=== PATIENT | male | born 1950 | race Caucasian/White ===

== ENCOUNTER 2017-04-22 13:05 | Outpatient (CLI) | payer BC, MEDICARE ==
--- NOTE | 2017-04-22 14:53 | RAD ---
TWO VIEW CHEST: HISTORY: COPD. COMPARISON: July 2011. FINDINGS: Lungs are clear. Heart and mediastinum appear normal. Mild aortic calcification is seen. The osseo us structures are unremarkable. IMPRESSION: Unremarkable chest. POS: [facility]
== END 2017-04-22 13:06 | disposition home or self-care (01) ==
LOC: RAD-FRANK 13:05
PROVIDERS: ATTEND Nurse Practitioner Family
DX: J18.9 Pneumonia, unspecified organism (principal); J44.1 Chronic obstructive pulmonary disease with (acute) exacerbation; M94.0 Chondrocostal junction syndrome [Tietze]; Z87.01 Personal history of pneumonia (recurrent)
CPT/HCPCS: 71046

== ENCOUNTER 2017-10-07 13:33 | Outpatient (CLI) | payer BC, MEDICARE ==
[~2017-10-07 13:33] MED LIST: ISOVUE-370 76%-LOCM 1 ML ONE
== END 2017-10-07 13:34 | disposition home or self-care (01) ==
LOC: BICCT 13:33
PROVIDERS: ATTEND Urology
DX: R31.29 Other microscopic hematuria (principal); R93.421 Abnormal radiologic findings on diagnostic imaging of right kidney; R93.422 Abnormal radiologic findings on diagnostic imaging of left kidney; R16.1 Splenomegaly, not elsewhere classified; K74.60 Unspecified cirrhosis of liver; I85.00 Esophageal varices without bleeding
CPT/HCPCS: 36415; 74178; 80048; 81001; 87086; 88112; G0103

== ENCOUNTER 2018-05-25 15:59 | Inpatient (IN) | payer BC, MEDICARE ==
[2018-05-25 16:29] LABS: #Lymphocytes 0.8 thou/uL (1.20-3.40); #Monocytes 1.3 thou/uL (0.11-0.59); #Neutrophils 8.2 thou/uL (1.40-6.50); %Basophils 0.3 % (0.0-1.0); %Eosinophils 0.2 % (0.0-10.0); %Lymphocytes 7.7 % (21.0-51.0); %Monocytes 12.3 % (0.0-10.0); %Neutrophils 79.4 % (42.0-75.0); Mean Corpuscular HGB CONC 32.9 g/dL (32.0-36.0); Mean Corpuscular Hemoglobin 31.9 pg (27.0-31.0); Mean Platelet Volume 9.4 fL (7.4-10.4); Platelet Count 87 thou/uL (130-400); RBC Distribution Width 13.4 % (11.5-14.5); Red Blood Cell (RBC) Count 4.06 mill/uL (4.70-6.10); White Blood Cell (WBC) Count 10.3 thou/uL (4.8-10.8)
[2018-05-25 16:44] LABS: ALT (SGPT) 15 U/L (8-55); AST (SGOT) 24 U/L (5-34); Albumin 3.6 g/dL (3.4-4.8); Alkaline Phosphatase 116 U/L (40-150); Anion Gap 14 mmol/L (10-20); BUN (Urea Nitrogen) 17 mg/dL (8.4-25.7); Bilirubin, Total 1.9 mg/dL (0.2-1.2); Calc. Creatinine Clearance 0 mL/min (70-130); Calcium 9.4 mg/dL (7.8-10.44); Carbon Dioxide 22 mmol/L (23-31); Chloride 105 mmol/L (98-107); Estimated GFR-MDRD Greater than 90; Globulin 3.1 g/dL (2.4-3.5); Glucose 116 mg/dL (80-115); Lipase 22 U/L (8-78); Potassium 3.6 mmol/L (3.5-5.1); Protein, Total 6.7 g/dL (5.8-8.1); Sodium 137 mmol/L (136-145)
[2018-05-25] MEDS ORDERED: Ondansetron PF 4 MG/2 ML Vial ONE (16:47)
[2018-05-25] MEDS ORDERED: Morphine 4 MG/ML VIAL ONE (16:47)
[2018-05-25] MEDS ORDERED: ISOVUE-370 76%-LOCM 1 ML ONE (16:57)
[2018-05-25] MEDS ORDERED: Gadobenate Dimeglumine 529 MG/1 ML (20ML VIAL) ONE (16:58)
[2018-05-25 17:33] LABS: Bilirubin Moderate (Negative); Blood, Urine Negative (Negative); Clarity CLEAR (Clear); Glucose, Urine (Dipstick) Negative (Negative); Leukocyte Small (Negative); Protein, Urine (Dipstick) 30 mg/dL (Neg-Trace); Specific Gravity, Urine 1.033 (1.002-1.036); pH, Urine 6.5 (5.0-9.0)
[2018-05-25 17:35] LABS: Bacteria/HPF None Seen HPF (None Seen); Pathc Cast-AUWi Flag 0.87 (0-2.49); Squamous Epithelial 0-3 HPF (0-3); WBC/HPF 0-3 HPF (0-3)
[2018-05-25 17:37] LABS: Nitrite Negative (Negative); Urobilinogen > or = 8.0 mg/dL (0.2-1.0)
[2018-05-25] MEDS ORDERED: Piperacillin/Tazobactam 3.375 GM VIAL ONE (17:38)
[2018-05-25] MEDS ORDERED: Sodium Chloride 0.9% 0 ML ONE (17:38)
[2018-05-25] MEDS ORDERED: Sodium Chloride 0.9% 100 ML ONE (17:39)
[2018-05-25 17:45] LABS: Hyaline Casts/LPF 0-3 HYALINE CAST LPF (0-3 Hyaline)
--- NOTE | 2018-05-25 18:26 | CT ---
CT ABDOMEN AND PELVIS WITH CONTRAST: History: Diffuse abdominal pain, worsening right upper quadrant. Comparison: None. FINDINGS: No pericardial effusion. Diffuse hepatic nodularity suggesting cirrhosis. The gallbladder is distende d with pericholecystic inflammation suggesting acute cholecystitis. The common bile duct measures up to 9 mm. Evaluation for hepatic mass is limited due to the phase of contrast. There is mild perihepat ic fluid. There is narrowing of the second portion of the duodenum due to the gallbladder distention. Mild girish splenic fluid. There is gastric varices as well as splenic varices. Aortic contour is nonaneurysmal. There is small volume fluid within the pelvis. Reactive inflammation of the hepatic flexure of the colon due to infl ammation from the gallbladder. Multiple left and right renal hypodensities suggest cysts. Punctate 2 mm calculus interpolar right ki dney, nonobstructed. Dense calcifications in the origin of the celiac trunk and SMA with adequate peripheral flow. No retr operitoneal adenopathy. There is an old compression fracture at L1 approximately 30% anterior height loss. Advanced degenerat jose disease L5-S1. IMPRESSION: 1. Distended gallbladder with pericholecystic fluid suggestive of acute cholecystitis. There is peris plenic and perihepatic fluid as well as increased fluid in the pelvis likely from the acute cholecyst itis. 2. Reactive thickening of the hepatic flexure of the colon as well as narrowing, extrinsic, second po rtion duodenum due to the distended gallbladder. 3. Mildly dilated common bile duct measuring up to 9 mm. 4. Hepatic cirrhosis with hypertension. Given the severe cirrhosis, patient should be placed in an HC C screening ultrasound program. Evaluation for underlying mass is limited due to the phase of contras t. 5. 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 POS: [facility]
[2018-05-25] MEDS ORDERED: Ondansetron PF 4 MG/2 ML Vial IVP PRN (19:05)
[2018-05-25] MEDS ORDERED: Ondansetron ODT 4 MG TAB SL PRN (19:05)
[2018-05-25] MEDS ORDERED: Sodium Chloride 0.9% 1,000 ML IV SCH (19:05)
[2018-05-25] MEDS ORDERED: Morphine 4 MG/ML VIAL SLOW IVP PRN (19:07)
[2018-05-25] MEDS ORDERED: Ketorolac Tromethamine 30 MG/ML VIAL IVP PRN (19:17)
[2018-05-25] MEDS ORDERED: Acetaminophen 1,000 MG in Premix Bag 1 BAG IVPB PRN (19:17)
[2018-05-25] MEDS ORDERED: Sodium Chloride 0.9% (PF) 10 ML VIAL FS PRN (19:18)
[2018-05-25] MEDS ORDERED: Enoxaparin Sodium 40 MG/0.4 ML SYRINGE SC SCH (19:30)
--- NOTE | 2018-05-25 20:49 | MRI ---
MRI ABDOMEN WITH AND WITHOUT CONTRAST MRCP: History: Abdominal pain. Comparison: CT same day. FINDINGS: There is extensive periesophageal, perigastric varices. The gallbladder is dilated. There is a 3 mm c alculus within the gallbladder body. No definite calculus is appreciated within the cystic duct. Ther e is a 4 mm and 3 mm calculus in the distal common bile duct proximal to the ampulla and proximal to the confluent with the pancreatic duct. Pancreatic duct not significantly dilated. Extensive pericholecystic inflammation. There is pericholecystic of stranding. There is perihepatic a nd perisplenic fluid. Multiple bilateral renal cysts. No abnormal hepatic enhancing mass is appreciated. Common bile duct is dilated measuring up to 1 cm in size. Portal vein is patent. Spleen is mildly enlarged. Left sided IVC. IMPRESSION: 1. Two stones in the distal common bile duct proximal to the ampulla and confluence with the pancreat ic duct measuring 4 and 3 mm. CBD measures up to 1 cm. 2. Markedly dilated gallbladder with pericholecystic inflammation concerning for superimposed cholecy stitis due to reservoir affect from distal common bile duct obstruction. 3. Concern for 1.2 cm hepatic segment Eli mass (se 16 im 23). AFP correlation recommended. At a minim um a follow up MRI liver protocol in 1-2 months recommended. 3. Likely an inflamed pericaval lymph node. 4. Severe hepatic cirrhosis with gastric and splenic varices. Portal vein is patent. CODE: T POS: [facility]
[2018-05-25] MEDS: Lactated Ringer's 1,000 ML IV SCH (20:51)
[2018-05-25 21:45] LABS: Lactic Acid 1.5 mmol/L (0.5-2.2)
[2018-05-26 00:01] VITALS: BMI 28.0
--- NOTE | 2018-05-26 00:31 | CON ---
DATE OF CONSULTATION: 05/25/2018 REASON FOR CONSULTATION: Possible choledocholithiasis. CONSULTING PHYSICIAN: Johnathon Hinton MD HISTORY OF PRESENT ILLNESS: The patient is a 67-year-old male with past medical history of tongue cancer, status post chemotherapy and radiation treatment, benign prostatic hyperplasia, asthma, COPD, and hypertension presenting with complaints of right upper quadrant abdominal pain. He states that he was in the usual state of health until approximately 4 to 5 days ago when he began to have increased right upper quadrant/periumbilical abdominal pain characterized as a stabbing/cramping type sensation, was constant and would reach a severity of 8/10. The pain was worse with increased physical activity and pressure to the region. However, there were no clear alleviating factors. The pain was associated with subjective fever and chills, but he denies any nausea, vomiting, dysphagia, odynophagia, GI bleeding, diarrhea, or constipation. He notes that his bowel movements do not have any effect on his abdominal pain at all. With the worsening of his abdominal pain, it prompted him to seek healthcare assistance at the [facility]. While in the ER, he was noted to have cirrhotic morphology on imaging as well as findings consistent with acute cholecystitis and elevated bilirubin and now an MRI with findings consistent with two stones within the common bile duct consistent with choledocholithiasis. REVIEW OF SYSTEMS: A 10-category review of systems was obtained with all responses negative except for the pertinent positives as listed in HPI. PAST MEDICAL HISTORY: As per HPI. PAST SURGICAL HISTORY: Bilateral hip replacement, bilateral knee replacement, appendectomy, shoulder surgery, tonsillectomy. FAMILY HISTORY: Denies any GI malignancies. SOCIAL HISTORY: Denies any tobacco, alcohol, or illicit drug use. OUTPATIENT MEDICATIONS: Reviewed. ALLERGIES: NO KNOWN DRUG ALLERGIES. PHYSICAL EXAMINATION: VITAL SIGNS: Temperature 98.6, pulse 87, blood pressure 162/81, respiratory rate 18, saturating 97% on room air. GENERAL: The patient is lying in bed, in no acute distress. Alert and oriented x4. HEENT: Normocephalic, atraumatic. Neck is supple. No JVD or scleral icterus noted. CARDIOVASCULAR: Regular rate and rhythm with no discernible murmurs, gallops, or rubs. RESPIRATORY: Clear to auscultation bilaterally with no discernible wheezes or rales. ABDOMEN: Normoactive bowel sounds. Soft. Mild abdominal distention. Tenderness to palpation in the right upper quadrant, right mid abdomen, and periumbilical regions. EXTREMITIES: No cyanosis, clubbing, or edema. LABORATORY DATA: CBC with a white blood cell count of 10.3, hemoglobin 13, hematocrit 39.4, platelets 87. Chemistry with a sodium of 137, potassium 3.6, chloride 105, CO2 of 22, BUN 17, creatinine 0.8, glucose 116, AST 24, ALT 15, albumin 36, alkaline phosphatase 116, total bilirubin 1.9. FIB-4 calculation which showed significant fibrosis with 4.77, APRI score indeterminate at 0.7. IMAGING DATA: A CT of the abdomen and pelvis was obtained on May 25, 2018, which showed diffuse hepatic nodularity suggesting cirrhosis. The gallbladder also was distended with pericholecystic inflammation suggesting acute cholecystitis. However, the common bile duct measured approximately 9 mm in size without any evidence of choledocholithiasis. There were gastric varices as well as splenic varices seen on CT as well as multiple left and right renal hypodensities suggesting cysts. An MRCP was also obtained on May 25, 2018, which showed extensive periesophageal and perigastric varices. The gallbladder was again seen dilated with a 3-mm calculus within the gallbladder body. However, there were 4 mm and 3 mm calculi within the distal common bile duct consistent with choledocholithiasis. There was also extensive pericholecystic inflammation suggesting acute cholecystitis. The common bile duct measured approximately 1 cm in size on the MRCP. However, there was concern for a 1.2-cm hepatic segment 4A mass concerning for possible malignancy, but unable to determine given the non-multiphasic nature of the study. ASSESSMENT AND PLAN: The patient is a 67-year-old male with past medical history of tongue cancer, status post chemotherapy and radiation, benign prostatic hypertrophy, asthma, chronic obstructive pulmonary disease, and hypertension presenting with choledocholithiasis and cirrhosis. Choledocholithiasis. The patient is presenting with acute onset of right upper quadrant abdominal pain that has been present for the last 4 to 5 days, characterized as a stabbing/cramping type sensation that has been constant and would reach a severity of 8/10. On admission, his LFTs are fairly unremarkable except for a mildly elevated total bilirubin 1.9. However, imaging on the CT scan is showing dilation of the distal common bile duct at 9 mm, where as the MRCP is showing choledocholithiasis with two stones within the distal common bile duct. Recommendations: 1. Agree with placement of patient on broad-spectrum antibiotic to include gram-negative coverage given the finding of choledocholithiasis. 2. IV fluids per primary team. 3. We would make the patient n.p.o. at this time in preparation for ERCP later on this morning. 4. We will plan for ERCP given the presence of common bile duct stones later on today. Cirrhosis. The patient is presenting with a new diagnosis of cirrhosis based primarily on imaging consistent with cirrhotic morphology as well as perigastric and periesophageal varices. He does have significant thrombocytopenia as well as FIB elevated noninvasive marker of fibrosis (FIB-4) consistent with fibrosis. At this point, the patient does appear to have cirrhosis of the liver, but the etiology is unknown at this time. He also appears to have a 1.2-cm lesion with a hepatic segment 4 concerning for the presence of possible hepatocellular carcinoma. Recommendations: 1. The patient will need a multiphasic study within the next 1-2 months for further evaluation of this hepatic mass/lesion. 2. We would obtain a full liver workup regarding the possible etiology of cirrhosis. 3. The patient will need a screening EGD here in the near future for evaluation of esophageal varices. He will also need a screening colonoscopy given his age of 67 (age-appropriate screening colonoscopy). We will continue to follow. Please call with any questions. Job ID: [id number]
[2018-05-26] MEDS ORDERED: Piperacillin/Tazobactam 3.375 GM in Sodium Chloride 0.9% 100 ML IVPB SCH (02:00)
[2018-05-26] MEDS: Lactated Ringer's 1,000 ML IV SCH ×2 (03:09→12:02)
[2018-05-26 07:57] LABS: #Lymphocytes 0.5 thou/uL (1.20-3.40); #Monocytes 0.7 thou/uL (0.11-0.59); #Neutrophils 3.5 thou/uL (1.40-6.50); %Basophils 0.4 % (0.0-1.0); %Eosinophils 0.9 % (0.0-10.0); %Lymphocytes 9.9 % (21.0-51.0); %Monocytes 14.3 % (0.0-10.0); %Neutrophils 74.4 % (42.0-75.0); Hemoglobin 11.2 g/dL (14.0-18.0); Mean Corpuscular HGB CONC 33.2 g/dL (32.0-36.0); Mean Corpuscular Hemoglobin 32.5 pg (27.0-31.0); Mean Corpuscular Volume 98.1 fL (78.0-98.0); Mean Platelet Volume 8.7 fL (7.4-10.4); Platelet Count 58 thou/uL (130-400); RBC Distribution Width 13.3 % (11.5-14.5); Red Blood Cell (RBC) Count 3.44 mill/uL (4.70-6.10); White Blood Cell (WBC) Count 4.8 thou/uL (4.8-10.8)
[2018-05-26] MEDS ORDERED: Indomethacin 50 MG SUPP PR ONE (08:00)
[2018-05-26 08:09] LABS: INR-International Normal Ratio 1.5; Prothrombin Time 18.4 SEC (12.0-14.7)
[2018-05-26 08:16] LABS: ALT (SGPT) 16 U/L (8-55); AST (SGOT) 22 U/L (5-34); Albumin 3.1 g/dL (3.4-4.8); Alkaline Phosphatase 104 U/L (40-150); Anion Gap 11 mmol/L (10-20); BUN (Urea Nitrogen) 17 mg/dL (8.4-25.7); Calc. Creatinine Clearance 98 mL/min (70-130); Carbon Dioxide 24 mmol/L (23-31); Chloride 108 mmol/L (98-107); Estimated GFR-MDRD 85; Globulin 2.5 g/dL (2.4-3.5); Glucose 94 mg/dL (80-115); Iron 32 ug/dL (65-175); Iron Binding Capacity, Total 205 mcg/dL (261-462); Potassium 3.5 mmol/L (3.5-5.1); Protein, Total 5.6 g/dL (5.8-8.1); Sodium 139 mmol/L (136-145)
[2018-05-26 08:35] LABS: Ferritin 259.26 ng/mL (22-322)
[2018-05-26 08:47] LABS: HBSAB Concentration 0.99 mIU/mL; HBSAg Index 0.18 S/CO (0-0.99); Hep B Core Total Ab Non-Reactive (NonReactive); Hep B Core Total Index 0.08 S/CO (0-0.79); Hep B Surf AB Non-Reactive (NonReactive); Hep B Surf Ag Non-Reactive S/CO (NonReactive); Hep C IgG Ab Non-Reactive (NonReactive); Hep C Index 0.09 S/CO (0-0.79)
[2018-05-26] MEDS: Pantoprazole 40 MG VIAL IVP SCH (10:03)
[2018-05-26] MEDS ORDERED: Glycopyrrolate 0.2 MG/ML 5 ML SYRINGE ONE (11:35)
[2018-05-26] MEDS ORDERED: PROPOFOL 200 MG/20 ML VIAL ONE (11:35)
[2018-05-26] MEDS ORDERED: Rocuronium Bromide 10 MG/ML (10ML VIAL) ONE (11:35)
[2018-05-26] MEDS ORDERED: Ondansetron PF 4 MG/2 ML Vial ONE (11:35)
[2018-05-26] MEDS ORDERED: Lidocaine 1% PF 5 ML VIAL ONE (11:35)
[2018-05-26] MEDS ORDERED: Dexamethasone 20 MG/5 ML VIAL ONE (11:35)
[2018-05-26] MEDS ORDERED: Iothalamate Meglumine 60% 50 ML VIAL FS ONE (13:31)
[2018-05-26] MEDS ORDERED: Indomethacin 50 MG SUPP ONE (13:31)
[2018-05-26] MEDS ORDERED: Fentanyl 100 MCG/2 ML VIAL ONE (13:47)
[2018-05-26] MEDS ORDERED: Ondansetron HCl/PF 4 MG/2 ML Vial IVP PRN (14:19)
[2018-05-26] MEDS ORDERED: Promethazine HCl 25 MG/ML VIAL SLOW IVP PRN (14:19)
[2018-05-26] MEDS ORDERED: Promethazine HCl 25 MG/ML VIAL IM PRN (14:19)
[2018-05-26] MEDS ORDERED: Promethazine HCl 25 MG/ML VIAL ONE (14:50)
--- NOTE | 2018-05-26 16:08 | OP ---
DATE OF PROCEDURE: 05/26/2018 PREPROCEDURE DIAGNOSES: 1. Cirrhosis. 2. Right upper quadrant pain with imaging findings suggest a possible cholecystitis or portal hypertension is possible as well. 3. Gallstones. 4. Magnetic resonance cholangiopancreatography showed possible filling defects in the common bile duct, which is 12 to 13 mm in size. POSTPROCEDURE DIAGNOSES: 1. A 12 mm common bile duct with no filling defects. 2. Small sphincterotomy was performed in light of the magnetic resonance cholangiopancreatography findings, duct was swept 3 times with 12 mm balloon with no effect. 3. Positive intrahepatic ducts consistent with cirrhosis. 4. 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 RECOMMENDATIONS: 1. If there is ongoing concern for cholecystitis, he get a HIDA scan and see if the gallbladder fills or not. Otherwise, he is being treated medically. After acute cholecystitis issues resolved, would consider starting him on a beta nacho, if he is not already on 1 for the varices. 2. I stopped Toradol, this is contraindicated in this 67-year-old man with cirrhosis that is going to cause renal problems. PROCEDURE IN DETAIL: The patient was informed of the risks, benefits, and possible complications of endoscopy including perforation, reaction to medication, and aspiration, informed consent was obtained. The patient was brought to the endoscopy suite, where he was sedated in gradual fashion. Once he was comfortable, he was intubated and placed in prone position on fluoroscopy table. Side-viewing duodenoscope was advanced through the esophagus, stomach, and the second portion of the duodenum and the ampulla was brought into view, which was draining clear yellow bile. Free cannulation was obtained. The cholangiogram revealed no filling defects, but 12 to 13 mm common bile duct. With the findings of the MRCP, the sphincterotomy was performed and swept with 12 mm balloon 3 times with no stones coming through and spontaneous drainage of contrast endoscopically and good drainage was documented radiographically as well. The scope was then retroflexed. No proximal gastric varices. However, the esophageal varices were noted in the distal esophagus. The scope was removed. The patient tolerated the procedure well. No complications. Job ID: [id number]
--- NOTE | 2018-05-26 16:46 | RAD ---
ERCP 3 VIEWS: Date: 05/26/18 HISTORY: Cholecystitis. FINDINGS: Three views show filling of the common bile duct, which does not appear significantly dilated. The di stal ampullary region is never well visualized. No definite filling defects are seen. IMPRESSION: Limited but unremarkable ERCP examination. POS: [facility]
[2018-05-26] MEDS ORDERED: [UNRECOGNIZED DRUG - OTHER] PO PRN (22:32)
[2018-05-26] MEDS ORDERED: fentaNYL 100 mcg/hour Patch TD SCH (22:45)
[2018-05-26] MEDS ORDERED: Docusate Sodium 100 MG/10 ML UDCUP PO PRN (23:02)
[2018-05-27] MEDS: Lactated Ringer's 1,000 ML IV SCH ×3 (00:20→13:02)
--- NOTE | 2018-05-27 00:50 | HP ---
CHIEF COMPLAINT: Abdominal pain. HISTORY OF PRESENT ILLNESS: Mr. Ervin is a 67-year-old man, who has had severe mid abdominal pain since Saturday night. He was admitted on Saturday night through the emergency room with a presumed diagnosis of cholecystitis and cholelithiasis. However, on further examination of his medical history and imaging, he was noted to have evidence of cirrhosis as well as choledocholithiasis. GI was consulted and he underwent an ERCP this morning. No stones were seen in the duct on ERCP despite evidence of stones in the duct on MRCP. The patient states that since being admitted to the hospital, his abdominal pain has basically resolved. He states that when the pain came on, he initially tried to just tough it out at home but it was not getting any better, and was in fact getting worse. He describes the pain as constant and unaffected by anything that he did including activity and eating. He had nausea and subjective fevers and chills, but did not throw up. He did not have any changes in his bowel habits. He states that he was diagnosed with early cirrhosis, 11 or 12 years ago. This was about the same time as he was diagnosed with cancer of the base of his tongue and underwent treatment for that. He was a heavy drinker up until that time, but gave up drinking completely when he was diagnosed with his cancer. He underwent a radical resection of his cancer including part of his jaw and a neck dissection, and then had postoperative radiation therapy. There has been no evidence of recurrence of his cancer since that time. PAST MEDICAL HISTORY: COPD, asthma, hypertension, BPH, history of base of tongue cancer, and cirrhosis. PAST SURGICAL HISTORY: Includes hip and knee replacement bilaterally, appendectomy, shoulder surgery, tonsillectomy, and radical surgery for his base of tongue cancer. FAMILY HISTORY: He does not have any family history of GI malignancies or cirrhosis. SOCIAL HISTORY: Heavy alcohol use in the past, but none in the 11 to 12 years. No tobacco or drug use. ALLERGIES: HE HAS NO KNOWN DRUG ALLERGIES. OUTPATIENT MEDICATIONS: Include: 1. Amlodipine. 2. Vitamin D. 3. Docusate. 4. Fentanyl patch. 5. Iron. 6. Ibuprofen. 7. Afrin nasal spray. 8. Lyrica. 9. Sudafed. 10. Flomax. 11. Anoro Ellipta inhaler. 12. Ventolin inhaler. INPATIENT MEDICATIONS: Include: 1. Levofloxacin. 2. Protonix. REVIEW OF SYSTEMS: Ten-system review of systems is negative except per HPI. LABORATORY DATA: White count this morning was 4.8, hematocrit of 33, and platelet count of 58. INR was elevated at 1.5. TIBC was low at 205. Bilirubin mildly elevated at 2. Other transaminases and lipase normal. IMAGING DATA: CT of the abdomen and pelvis shows hepatic morphology consistent with cirrhosis, distended gallbladder with some pericholecystic inflammation and a dilated common bile duct, gastric and splenic varices, full calcifications at the origin of the celiac and SMA. MRCP showed two stones in the distal common bile duct and a 1.2 cm hepatic mass. PHYSICAL EXAMINATION: GENERAL: Reveals a pleasant gentleman, in no acute distress. He is not visibly jaundiced or icteric. He is not flushed or toxic in appearance. HEENT: Remarkable for postoperative and radiation changes to the right neck. No palpable masses or lymphadenopathy. HEART: Regular. LUNGS: Clear. ABDOMEN: Soft and nondistended. He is very mildly tender to palpation in the right upper quadrant and epigastrium does not exhibit any rigidity, rebound or guarding. No fluid wave on examination and no caput. EXTREMITIES: Warm and well perfused with no significant edema. NEUROLOGIC: No focal deficits. PSYCHIATRIC: Alert, oriented, and appropriate. Unable to give a good history. ASSESSMENT: Cirrhotic patient with gallstones and some wall thickening and edema of the gallbladder. He did have evidence of choledocholithiasis on MRCP, but no stones were seen on the ERCP. It is possible these passed since the patient's abdominal pain has basically resolved when I saw him this morning. In any case, he has now had a sphincterotomy and should be protected from choledocholithiasis for a period of time. He is undergoing workup for the etiology of his cirrhosis but given his history of heavy drinking in the past, this may well be a consequence of his past heavy alcohol use. We will continue with medical management for presumed cholecystitis and if his symptoms continue to resolve, then I would not pursue cholecystectomy. He needs to be referred to a transplant center for evaluation given his worsened cirrhosis and evidence of a hepatic mass suspicious for hepatocellular carcinoma. His platelet count is quite low and surgery would carry risk of bleeding and decompensation of his cirrhosis. Job ID: [id number]
[2018-05-27] MEDS: Ipratropium Bromide 2.5 ml Neb NEB SCH ×3 (01:11→13:01)
[2018-05-27] MEDS: PROVENTIL INHALER 6.7 G (200 INHALATIONS) INH SCH ×3 (01:11→13:01)
[2018-05-27 07:09] LABS: ALT (SGPT) 16 U/L (8-55); AST (SGOT) 25 U/L (5-34); Albumin 3.1 g/dL (3.4-4.8); Alkaline Phosphatase 122 U/L (40-150); Anion Gap 11 mmol/L (10-20); BUN (Urea Nitrogen) 17 mg/dL (8.4-25.7); Bilirubin, Direct 0.6 mg/dL (0.1-0.3); Calc. Creatinine Clearance 111 mL/min (70-130); Carbon Dioxide 24 mmol/L (23-31); Chloride 108 mmol/L (98-107); Estimated GFR-MDRD Greater than 90; Glucose 112 mg/dL (80-115); Protein, Total 5.6 g/dL (5.8-8.1); Sodium 139 mmol/L (136-145)
[2018-05-27 07:33] LABS: Hemoglobin 10.5 g/dL (14.0-18.0); Mean Corpuscular HGB CONC 32.4 g/dL (32.0-36.0); Mean Corpuscular Hemoglobin 31.5 pg (27.0-31.0); Mean Corpuscular Volume 97.2 fL (78.0-98.0); Mean Platelet Volume 9.4 fL (7.4-10.4); Platelet Count 67 thou/uL (130-400); RBC Distribution Width 13.2 % (11.5-14.5); Red Blood Cell (RBC) Count 3.34 mill/uL (4.70-6.10)
[2018-05-27] MEDS ORDERED: Ferrous Sulfate 325 MG TAB PO SCH (08:00)
[2018-05-27] MEDS: Pregabalin 50 MG CAP PO SCH ×2 (08:45→14:12)
[2018-05-27] MEDS: Pantoprazole 40 MG VIAL IVP SCH (08:47)
[2018-05-27 08:59] LABS: Band 16 % (5-11); Lymphocytes 13 % (21-51); MDiff Complete? YES; Monocytes 3 % (0-10); Neutrophil 68 % (42-75); Platelet Morphology Comment Appears Decreased; Polychromasia SLIGHT = 2-3 cells (100X) (0-2/hpf)
[2018-05-27] MEDS ORDERED: Tamsulosin HCl 0.4 MG CAP PO SCH (09:00)
[2018-05-27] MEDS ORDERED: Amlodipine 5 MG TAB PO SCH (09:00)
[2018-05-27 12:55] LABS: ANA Symphony (Qualitative) Negative (Negative); ANA Symphony (Quantitative) 0.1 Ratio (< 0.7 Negative); dsDNA IgG Antibody 2.2 IU/mL (<10 Negative)
[2018-05-27 13:12] LABS: EliA Vaculitis New Method **** NEW METHOD ****; Mitochondrial Ab 0.8 U/mL (<4 Negative)
[2018-05-27 15:51] VITALS: BP 130/75; TEMP 97.7
[2018-05-27] MEDS ORDERED: fentaNYL 100 mcg/hour Patch TD SCH (21:00)
== END 2018-05-27 16:43 | disposition home or self-care (01) | DRG 445 ==
LOC: ERS 15:59 → SURG A 18:39
PROVIDERS: ADMIT Specialist; ATTEND Specialist
PROC: 0F798ZZ Dilation of Common Bile Duct, Via Natural or Artificial Opening Endoscopic (ICD-10-PCS; principal; 2018-05-26)
DX: K80.62 Calculus of gallbladder and bile duct with acute cholecystitis without obstruction (principal); I85.10 Secondary esophageal varices without bleeding; K74.60 Unspecified cirrhosis of liver; J44.9 Chronic obstructive pulmonary disease, unspecified; N40.0 Benign prostatic hyperplasia without lower urinary tract symptoms; I10 Essential (primary) hypertension; Z85.810 Personal history of malignant neoplasm of tongue; Z92.3 Personal history of irradiation; Z87.891 Personal history of nicotine dependence
CPT/HCPCS: 36415; 74177; 74183; 74330; 80048; 80053; 80076; 81003; 81015; 82103; 82105; 82140; 82390; 82550; 82728; 83516; 83540; 83550; 83605; 83690; 84484; 85007; 85025; 85027; 85610; 86038; 86225; 86704; 86706; 86803; 87340; 93005; 96361; 96365; 96375; A9577; C9113; J0131; J1100; J1650; J1885; J1956; J2001; J2270; J2405; J2543; J2550; J2704; J3010; J7050; Q9961; Q9966

== ENCOUNTER 2018-06-04 16:30 | Outpatient (CLI) | payer BC, MEDICARE ==
--- NOTE | 2018-06-04 17:24 | RAD ---
PA AND LATERAL CHEST: HISTORY: Cough and wheezing. COMPARISON: 05/22/2017 FINDINGS: The heart size is normal. The aorta is tortuous. The lungs are well expanded without focal areas of consolidation, pneumothoraces, or pleural effusions. No acute osseous abnormalities are seen. Post op changes in the left shoulder are redemonstrated. IMPRESSION: No radiographic evidence of acute cardiopulmonary process. POS: [facility]
== END 2018-06-04 16:31 | disposition home or self-care (01) ==
LOC: BICRAD 16:30
PROVIDERS: ATTEND Surgery
DX: R05 Cough (principal); R06.2 Wheezing
CPT/HCPCS: 71046

== ENCOUNTER 2018-07-30 13:34 | Outpatient (CLI) | payer BC, MEDICARE ==
[2018-07-30] MEDS ORDERED: Gadobenate Dimeglumine 529 MG/1 ML (20ML VIAL) ONE (14:43)
--- NOTE | 2018-07-30 17:03 | MRI ---
MR OF THE ABDOMEN WITH AND WITHOUT IV CONTRAST 07/30/18 INDICATION: History of alcoholic cirrhosis. CONTRAST: 18 mL of Multihance. COMPARISON: MR of the abdomen with and without contrast dated 05/25/18. FINDINGS: The cirrhotic morphology of the liver with findings of portal hypertension including splenomegaly, sp lenic and paraesophageal gastric varicosities is similar appearing. Portal vein appears patent. The d ilated common bile duct remains prominent without visible intraluminal stones as seen on the prior ex amination. The common bile duct now measures 9 mm where previously it measured 1.4 cm. The two dista l obstructing stones in the distal common bile duct are no longer demonstrated. The main pancreatic d uct is of normal caliber. There is mild scattered ascites within the abdomen and pelvis. There is asy mmetric wall thickening involving the gallbladder fundus which was not appreciated on the prior exami nation now measuring 2.3 cm. The gallbladder is much less distended than seen on the prior exam. No s uspicious arterial enhancing lesion is grossly evident. There are bilateral renal cysts. Adrenal glan ds are normal appearing. No definite pathologically enlarged lymph nodes are evident. No bone marrow signal abnormality is noted. IMPRESSION: 1. Findings of cirrhosis with portal hypertension. No suspicious arterial enhancing lesion is ev ident within the liver to suggest hepatic malignancy. 2. Resolution of previously seen distal common bile duct stones within the common bile duct with improvement in the common bile duct dilatation. Common bile duct still remains slightly prominent me asuring up to 9 mm. No residual intraluminal stones are grossly evident. 3. Nonspecific asymmetric wall thickening involving the gallbladder fundus. This may have been r elated to the patient's prior inflammatory condition involving the gallbladder on prior examination. This could be related to a mild amount of fibrosis or focal adenomyomatosis; however, an enlarging m ass in this region cannot be entirely excluded. Would recommend a short term follow-up in 6 to 8 week s to document stability. 4. Bilateral renal cysts. 5. Mild ascites. POS: [facility]
== END 2018-07-30 13:35 | disposition home or self-care (01) ==
LOC: BICMRI 13:34
PROVIDERS: ATTEND Internal Medicine Gastroenterology
DX: K70.31 Alcoholic cirrhosis of liver with ascites (principal); K76.9 Liver disease, unspecified; K80.20 Calculus of gallbladder without cholecystitis without obstruction; I85.00 Esophageal varices without bleeding; D64.9 Anemia, unspecified; Z86.010 Personal history of colon polyps; N28.1 Cyst of kidney, acquired
CPT/HCPCS: 74183; 82565; A9577

== ENCOUNTER 2018-10-27 16:20 | Outpatient (CLI) | payer BC, MEDICARE ==
--- NOTE | 2018-10-27 16:31 | RAD ---
EXAM: Right Rib series HISTORY: Rib pain COMPARISON: None FINDINGS: Multiple views of the right ribs shows no evidence of displaced rib fracture. No underlying pleural t hickening or pneumothorax are seen. IMPRESSION: 1. No evidence of displaced rib fracture.
== END 2018-10-27 16:21 | disposition home or self-care (01) ==
LOC: RAD-FRANK 16:20
PROVIDERS: ATTEND Internal Medicine
DX: S23.41XA Sprain of ribs, initial encounter (principal)

== ENCOUNTER 2019-05-26 10:16 | Outpatient (CLI) | payer MEDICARE, OTHER ==
--- NOTE | 2019-05-26 11:00 | RAD ---
EXAM: Chest 2 views: HISTORY: Congestion COMPARISON: 06/04/2018 FINDINGS: There is a normal-sized cardiomediastinal silhouette. There is no evidence of consolidation, mass, or pleural effusion. The bones are unremarkable. IMPRESSION: No evidence of acute cardiopulmonary disease
--- NOTE | 2019-05-26 12:07 | ULT ---
HEPATIC ULTRASOUND WITH DOPPLER: INDICATION: Cirrhosis. FINDINGS: The left lobe is obscured. The visualized right lobe of the liver shows echogenicity and heterogenei ty consistent with a history of cirrhosis. A small amount of ascites is seen around the liver margin . Doppler study to the hepatic vessels showed normal flow in the portal veins and visualized hepatic ve ins. The left hepatic vein was not identified. Mild vascular flow is in the hepatopetal direction. The spleen is enlarged measuring 13 cm. Images through the gallbladder show echogenic sludge. The common bile duct is normal caliber at 5-6 mm. Abdominal aorta and IVC are obscured. The pancreas is obscured. Kidneys are not imaged. IMPRESSION: 1. Suboptimal exam. The left lobe of liver is not evaluated. Doppler shows normal hepatopetal bloo d flow in all visualized hepatic vessels. 2. Evidence of gallbladder sludge. POS: [facility]
== END 2019-05-26 10:17 | disposition home or self-care (01) ==
LOC: BICULT 10:16
PROVIDERS: ATTEND Internal Medicine Gastroenterology
DX: K70.30 Alcoholic cirrhosis of liver without ascites (principal); K80.20 Calculus of gallbladder without cholecystitis without obstruction; I85.00 Esophageal varices without bleeding; K82.4 Cholesterolosis of gallbladder
CPT/HCPCS: 71046; 76705

== ENCOUNTER 2020-07-07 12:56 | Outpatient (CLI) | payer MEDICARE, OTHER | END 2020-07-07 12:57 | disposition home or self-care (01) | LOC: BICMRI 12:56 | PROVIDERS: ATTEND Orthopaedic Surgery | DX: M47.22 Other spondylosis with radiculopathy, cervical region (principal); M50.10 Cervical disc disorder with radiculopathy, unspecified cervical region; M48.02 Spinal stenosis, cervical region | CPT/HCPCS: 72141 ==

== ENCOUNTER 2020-07-19 13:14 | Outpatient (CLI) | payer MEDICARE, OTHER ==
[~2020-07-19 13:14] MED LIST changes: -ISOVUE-370 76%-LOCM 1 ML ONE; +Magnevist 469MG/ML 20 ML VIAL ONE
== END 2020-07-19 13:15 | disposition home or self-care (01) ==
LOC: BICMRI 13:14
PROVIDERS: ATTEND Internal Medicine Gastroenterology
DX: K70.30 Alcoholic cirrhosis of liver without ascites (principal); K76.6 Portal hypertension; I85.10 Secondary esophageal varices without bleeding; N28.1 Cyst of kidney, acquired; Z86.010 Personal history of colon polyps
CPT/HCPCS: 74183; 82565; A9579

== ENCOUNTER 2020-09-13 13:40 | Outpatient (CLI) | payer MEDICARE ==
[2020-09-13 16:16] LABS: ALT (SGPT) 11 U/L (8-55); AST (SGOT) 27 U/L (5-34); Albumin 3.2 g/dL (3.4-4.8); Alkaline Phosphatase 130 U/L (40-110); Anion Gap 12 mmol/L (10-20); BUN (Urea Nitrogen) 7 mg/dL (8.4-25.7); Bilirubin, Direct 0.4 mg/dL (0.1-0.3); Bilirubin, Total 0.9 mg/dL (0.2-1.2); Calc. Creatinine Clearance 0 mL/min (70-130); Calcium 8.7 mg/dL (7.8-10.44); Carbon Dioxide 25 mmol/L (23-31); Chloride 104 mmol/L (98-107); Glucose 134 mg/dL (80-115); Potassium 3.7 mmol/L (3.5-5.1); Protein, Total 5.4 g/dL (5.8-8.1); Sodium 137 mmol/L (136-145)
[2020-09-13 16:50] LABS: Hemoglobin 12.1 g/dL (13.5-17.5); Mean Corpuscular HGB CONC 32.5 g/dL (32.0-36.0); Mean Corpuscular Hemoglobin 31.3 pg (27.0-33.0); Mean Corpuscular Volume 96.1 fl (81.2-95.1); Mean Platelet Volume 11.2 fl (7.4-10.4); Platelet Count 78 10x3/uL (150-450); RBC Distribution Width 14.6 % (11.5-14.5); Red Blood Cell (RBC) Count 3.87 10x6/uL (4.32-5.72)
[2020-09-13 17:12] LABS: INR-International Normal Ratio 1.2; PTT 29.9 sec (22.0-33.0); Prothrombin Time 13.1 sec (9.5-12.1)
== END 2020-09-13 13:41 | disposition home or self-care (01) ==
LOC: LABBT 13:40
PROVIDERS: ATTEND Neurological Surgery
DX: Z01.818 Encounter for other preprocedural examination (principal); M54.12 Radiculopathy, cervical region
CPT/HCPCS: 80048; 80076; 85027; 85610; 85730; 93005; 93010

== ENCOUNTER 2020-09-16 05:50 | Day surgery (SDC) | payer MEDICARE ==
[2020-09-15 10:28] VITALS: BMI 26.8
[2020-09-16] MEDS ORDERED: Thrombin 5000 UNITS/5 ML VIAL ONE (06:27)
[2020-09-16] MEDS ORDERED: Fentanyl 100 MCG/2 ML VIAL ONE (06:31)
[2020-09-16 07:02] LABS: Platelet Count 68 thou/uL (130-400)
== END 2020-09-16 07:15 | disposition home or self-care (01) ==
LOC: SDC 05:50
PROVIDERS: ATTEND Neurological Surgery
DX: M54.12 Radiculopathy, cervical region (principal); M48.02 Spinal stenosis, cervical region; G89.4 Chronic pain syndrome; M19.90 Unspecified osteoarthritis, unspecified site; I10 Essential (primary) hypertension; N40.0 Benign prostatic hyperplasia without lower urinary tract symptoms; J44.9 Chronic obstructive pulmonary disease, unspecified; Z53.9 Procedure and treatment not carried out, unspecified reason; Z79.899 Other long term (current) drug therapy; Z88.8 Allergy status to other drugs, medicaments and biological substances
CPT/HCPCS: 36415; 85049; 86850; 86900; 86901; J0690; J3010

== ENCOUNTER 2020-12-02 14:21 | Outpatient (CLI) | payer MEDICARE | END 2020-12-02 14:22 | disposition home or self-care (01) | LOC: ULT 14:21 | PROVIDERS: ATTEND Psychiatry & Neurology Neurology | DX: G45.9 Transient cerebral ischemic attack, unspecified (principal); I65.22 Occlusion and stenosis of left carotid artery | CPT/HCPCS: 93880 ==

== ENCOUNTER 2021-01-13 15:03 | Outpatient (CLI) | payer MEDICARE ==
[2021-01-13 15:53] LABS: Hemoglobin 11.6 g/dL (13.5-17.5); Mean Corpuscular HGB CONC 32.5 g/dL (32.0-36.0); Mean Corpuscular Hemoglobin 31.5 pg (27.0-33.0); Mean Platelet Volume 10.6 fl (7.4-10.4); Platelet Count 82 10x3/uL (150-450); RBC Distribution Width 14.9 % (11.5-14.5); Red Blood Cell (RBC) Count 3.68 10x6/uL (4.32-5.72); White Blood Cell (WBC) Count 2.6 10x3/uL (3.5-10.5)
[2021-01-13 16:08] LABS: INR-International Normal Ratio 1.3; PTT 28.7 sec (22.0-33.0); Prothrombin Time 13.7 sec (9.5-12.1)
[2021-01-13 16:25] LABS: ALT (SGPT) 14 U/L (8-55); AST (SGOT) 29 U/L (5-34); Albumin 3.3 g/dL (3.4-4.8); Alkaline Phosphatase 142 U/L (40-110); Bilirubin, Direct 0.5 mg/dL (0.1-0.3); Bilirubin, Total 0.9 mg/dL (0.2-1.2); Protein, Total 5.5 g/dL (5.8-8.1)
[2021-01-14 16:49] LABS: SARS-CoV-2 PCR by NAA Not Detected (NotDetected)
== END 2021-01-13 15:04 | disposition home or self-care (01) ==
LOC: LABBT 15:03
PROVIDERS: ATTEND Neurological Surgery
DX: Z01.812 Encounter for preprocedural laboratory examination (principal); Z20.822 Contact with and (suspected) exposure to COVID-19
CPT/HCPCS: 80076; 85027; 85610; 85730; U0003; U0005

== ENCOUNTER 2021-01-18 05:51 | Day surgery (SDC) | payer MEDICARE ==
[2021-01-18] MEDS ORDERED: ceFAZolin 2 GM/DEX 5% 100 ML BAG ONE (08:30)
[2021-01-18] MEDS ORDERED: Thrombin 5000 UNITS/5 ML VIAL ONE (08:35)
[2021-01-18 08:48] LABS: #Lymphocytes 0.4 thou/uL (1.20-3.40); #Monocytes 0.3 thou/uL (0.11-0.59); #Neutrophils 1.6 thou/uL (1.40-6.50); %Basophils 0.7 % (0.0-1.0); %Eosinophils 1.6 % (0.0-10.0); %Lymphocytes 16.2 % (21.0-51.0); %Monocytes 13.3 % (0.0-10.0); %Neutrophils 68.2 % (42.0-75.0); Mean Corpuscular HGB CONC 33.3 g/dL (32.0-36.0); Mean Corpuscular Hemoglobin 32.7 pg (27.0-31.0); Mean Corpuscular Volume 98.1 fL (78.0-98.0); Mean Platelet Volume 8.4 fL (7.4-10.4); Platelet Count 84 thou/uL (130-400); RBC Distribution Width 13.5 % (11.5-14.5); Red Blood Cell (RBC) Count 3.38 mill/uL (4.70-6.10); White Blood Cell (WBC) Count 2.4 thou/uL (4.8-10.8)
== END 2021-01-18 09:45 | disposition home or self-care (01) ==
LOC: SDC 05:51
PROVIDERS: ATTEND Neurological Surgery
DX: M54.12 Radiculopathy, cervical region (principal); M48.02 Spinal stenosis, cervical region; G89.4 Chronic pain syndrome; M19.90 Unspecified osteoarthritis, unspecified site; I10 Essential (primary) hypertension; N40.0 Benign prostatic hyperplasia without lower urinary tract symptoms; J44.9 Chronic obstructive pulmonary disease, unspecified; Z53.9 Procedure and treatment not carried out, unspecified reason; Z79.899 Other long term (current) drug therapy; Z96.643 Presence of artificial hip joint, bilateral; Z96.653 Presence of artificial knee joint, bilateral
CPT/HCPCS: 36430; 85025; 86850; 86900; 86901; P9035; 36415

== ENCOUNTER 2021-02-10 13:57 | Outpatient (CLI) | payer MEDICARE | END 2021-02-10 13:58 | disposition home or self-care (01) | LOC: BICULT 13:57 | PROVIDERS: ATTEND Physician Assistant Medical | DX: I85.00 Esophageal varices without bleeding (principal); K70.31 Alcoholic cirrhosis of liver with ascites; K76.9 Liver disease, unspecified; D64.9 Anemia, unspecified; K76.6 Portal hypertension | CPT/HCPCS: 76700 ==

== ENCOUNTER 2021-03-10 13:55 | Outpatient (CLI) | payer MEDICARE ==
[2021-03-10 15:56] LABS: Hemoglobin 11.9 g/dL (13.5-17.5); Mean Corpuscular HGB CONC 32.5 g/dL (32.0-36.0); Mean Corpuscular Hemoglobin 30.3 pg (27.0-33.0); Mean Corpuscular Volume 93.1 fl (81.2-95.1); Mean Platelet Volume 12.5 fl (7.4-10.4); Platelet Count 86 10x3/uL (150-450); RBC Distribution Width 14.3 % (11.5-14.5); Red Blood Cell (RBC) Count 3.93 10x6/uL (4.32-5.72); White Blood Cell (WBC) Count 3.5 10x3/uL (3.5-10.5)
[2021-03-10 16:29] LABS: INR-International Normal Ratio 1.2; PTT 28.9 sec (22.0-33.0); Prothrombin Time 13.4 sec (9.5-12.1)
[2021-03-10 16:30] LABS: ALT (SGPT) 16 U/L (8-55); AST (SGOT) 40 U/L (5-34); Albumin 3.3 g/dL (3.4-4.8); Alkaline Phosphatase 147 U/L (40-110); Anion Gap 13 mmol/L (10-20); BUN (Urea Nitrogen) 9 mg/dL (8.4-25.7); Bilirubin, Direct 0.8 mg/dL (0.1-0.3); Bilirubin, Total 1.4 mg/dL (0.2-1.2); Calc. Creatinine Clearance 0 mL/min (70-130); Calcium 8.4 mg/dL (7.8-10.44); Carbon Dioxide 23 mmol/L (23-31); Chloride 104 mmol/L (98-107); Glucose 165 mg/dL (80-115); Potassium 3.9 mmol/L (3.5-5.1); Protein, Total 5.6 g/dL (5.8-8.1); Sodium 136 mmol/L (136-145)
[2021-03-11 18:10] LABS: SARS-CoV-2 PCR by NAA Not Detected (NotDetected)
== END 2021-03-10 13:56 | disposition home or self-care (01) ==
LOC: LABBT 13:55
PROVIDERS: ATTEND Neurological Surgery
DX: Z01.818 Encounter for other preprocedural examination (principal); Z20.822 Contact with and (suspected) exposure to COVID-19
CPT/HCPCS: 80048; 80076; 85027; 85610; 85730; 93005; U0003; U0005; 93010

== ENCOUNTER 2021-03-15 06:37 | Day surgery (SDC) | payer MEDICARE ==
[2021-03-14 11:00] VITALS: BMI 24.5
[2021-03-15] MEDS ORDERED: HYDROmorphone 2 MG/ML VIAL ONE (06:47)
[2021-03-15] MEDS ORDERED: Sodium Chloride 0.9% 10 ML ONE (06:47)
[2021-03-15] MEDS ORDERED: Fentanyl 100 MCG/2 ML VIAL ONE ×3 (06:47→12:12)
[2021-03-15] MEDS ORDERED: Thrombin 5000 UNITS/5 ML VIAL ONE (06:53)
[2021-03-15] MEDS ORDERED: Rocuronium Bromide 10 MG/ML (10ML VIAL) ONE (09:43)
[2021-03-15] MEDS ORDERED: Phenylephrine 10 MG/ML VIAL ONE (09:43)
[2021-03-15] MEDS ORDERED: Succinylcholine 200 MG/10 ml SYRINGE FS ONE (09:43)
[2021-03-15] MEDS ORDERED: ePHEDrine 50 MG/ML VIAL ONE (09:43)
[2021-03-15] MEDS ORDERED: Glycopyrrolate 0.2 MG/ML 5 ML SYRINGE ONE (09:43)
[2021-03-15] MEDS ORDERED: Lidocaine 1% PF 5 ML VIAL ONE (09:43)
[2021-03-15] MEDS ORDERED: Ondansetron PF 4 MG/2 ML Vial ONE (09:43)
[2021-03-15] MEDS ORDERED: PROPOFOL 200 MG/20 ML VIAL ONE (09:43)
[2021-03-15] MEDS ORDERED: Dexamethasone 20 MG/5 ML VIAL ONE (09:43)
[2021-03-15] MEDS ORDERED: SUGAMMADEX SODIUM 200 MG/2 ML VIAL ONE (10:57)
[2021-03-15] MEDS ORDERED: HYDROmorphone 0.5 MG/0.5 ML SYRINGE ONE ×2 (11:14→11:22)
[2021-03-15] MEDS ORDERED: tiZANidine HCl 4 MG TAB ONE (11:15)
[2021-03-15] MEDS ORDERED: Tamsulosin HCl 0.4 MG CAP ONE (11:15)
[2021-03-15] MEDS ORDERED: ceFAZolin 2 GM/DEX 5% 100 ML BAG ONE (12:48)
== END 2021-03-15 13:45 | disposition home or self-care (01) ==
LOC: SDC 06:37
PROVIDERS: ATTEND Neurological Surgery
PROC: 0RG10A0 Fusion of Cervical Vertebral Joint with Interbody Fusion Device, Anterior Approach, Anterior Column, Open Approach (ICD-10-PCS; principal; 2021-03-15)
DX: M54.12 Radiculopathy, cervical region (principal); M48.02 Spinal stenosis, cervical region; N40.1 Benign prostatic hyperplasia with lower urinary tract symptoms; R35.1 Nocturia; G89.4 Chronic pain syndrome; M19.90 Unspecified osteoarthritis, unspecified site; I10 Essential (primary) hypertension; J44.9 Chronic obstructive pulmonary disease, unspecified; Z79.82 Long term (current) use of aspirin; Z79.899 Other long term (current) drug therapy; Z87.891 Personal history of nicotine dependence
CPT/HCPCS: 76000; 86850; 86900; 86901; C1713; C1776; J1100; J1170; J2370; J2405; J2704; J3010; J3490

== ENCOUNTER 2021-03-23 10:31 | Outpatient (CLI) | payer MEDICARE | END 2021-03-23 10:32 | disposition home or self-care (01) | LOC: MRI 10:31 | PROVIDERS: ATTEND Internal Medicine Gastroenterology | DX: K70.31 Alcoholic cirrhosis of liver with ascites (principal); K76.6 Portal hypertension; K76.89 Other specified diseases of liver; I81 Portal vein thrombosis | CPT/HCPCS: 74183 ==

== ENCOUNTER 2021-05-19 12:48 | Day surgery (SDC) | payer MEDICARE ==
[2021-05-18 11:54] VITALS: BMI 26.6
[2021-05-19] MEDS ORDERED: Albumin 25% 100 ML ONE (12:53)
[2021-05-19] MEDS ORDERED: Sodium Bicarbonate 2.5 MEQ/5 ML VIAL ONE (12:53)
[2021-05-19] MEDS ORDERED: Lidocaine 1% PF 5 ML VIAL ONE (12:53)
[2021-05-19 12:57] LABS: #Lymphocytes 0.4 thou/uL (1.20-3.40); #Monocytes 0.6 thou/uL (0.11-0.59); #Neutrophils 4.5 thou/uL (1.40-6.50); %Eosinophils 0.4 % (0.0-10.0); %Monocytes 10.4 % (0.0-10.0); %Neutrophils 81.3 % (42.0-75.0); Hemoglobin 10.6 g/dL (14.0-18.0); Mean Corpuscular HGB CONC 31.2 g/dL (32.0-36.0); Mean Corpuscular Hemoglobin 29.9 pg (27.0-31.0); Mean Corpuscular Volume 96.1 fL (78.0-98.0); Mean Platelet Volume 8.8 fL (7.4-10.4); Platelet Count 67 thou/uL (130-400); RBC Distribution Width 14.4 % (11.5-14.5); Red Blood Cell (RBC) Count 3.55 mill/uL (4.70-6.10); White Blood Cell (WBC) Count 5.5 thou/uL (4.8-10.8)
[2021-05-19 13:08] LABS: INR-International Normal Ratio 1.3; PTT 34.8 sec (22.9-36.1); Prothrombin Time 16.6 sec (12.0-14.7)
[2021-05-19 13:38] VITALS: BP 113/55; TEMP 98.3
== END 2021-05-19 14:24 | disposition home or self-care (01) ==
LOC: ULT 12:48
PROVIDERS: ATTEND Physician Assistant Medical
PROC: 0W9G3ZZ Drainage of Peritoneal Cavity, Percutaneous Approach (ICD-10-PCS; principal; 2021-05-19)
PROC: BW40ZZZ Ultrasonography of Abdomen (ICD-10-PCS; 2021-05-19)
DX: K70.31 Alcoholic cirrhosis of liver with ascites (principal); K21.9 Gastro-esophageal reflux disease without esophagitis; D64.9 Anemia, unspecified; J44.9 Chronic obstructive pulmonary disease, unspecified; I10 Essential (primary) hypertension; G47.30 Sleep apnea, unspecified; Z79.82 Long term (current) use of aspirin; Z79.899 Other long term (current) drug therapy; Z87.891 Personal history of nicotine dependence
CPT/HCPCS: 49083; 85025; 85610; 85730; P9047; 36415

== ENCOUNTER 2021-09-22 10:25 | Outpatient (CLI) | payer MEDICARE | END 2021-09-22 10:26 | disposition home or self-care (01) | LOC: RAD-FRANK 10:25 | PROVIDERS: ATTEND Nurse Practitioner Family | DX: R05.9 Cough, unspecified (principal); J98.4 Other disorders of lung | CPT/HCPCS: 71046 ==

== ENCOUNTER 2021-10-23 08:42 | Inpatient (IN) | payer MEDICARE ==
[2021-10-23] MEDS ORDERED: Morphine 4 MG/ML VIAL ONE (08:57)
[2021-10-23] MEDS ORDERED: Ondansetron PF 4 MG/2 ML Vial IVP PRN (10:47)
[2021-10-23] MEDS ORDERED: Ondansetron ODT 4 MG TAB SL PRN (10:47)
[2021-10-23] MEDS ORDERED: Morphine 4 MG/ML VIAL SLOW IVP PRN (10:47)
[2021-10-23] MEDS ORDERED: Acetaminophen 500 MG TAB PO PRN (10:47)
[2021-10-23] MEDS ORDERED: Acetaminophen/Codeine 30-300mg Tablet PO PRN (11:49)
[2021-10-23] MEDS ORDERED: Pantoprazole 40 MG VIAL IVP SCH (12:00)
[2021-10-23] MEDS ORDERED: Piperacillin/Tazobactam 3.375 GM in Sodium Chloride 0.9% 100 ML IVPB SCH ×2 (12:00→14:00)
[2021-10-23 12:20] VITALS: BMI 25.8
[2021-10-23] MEDS ORDERED: Sodium Bicarbonate 2.5 MEQ/5 ML VIAL ONE (12:47)
[2021-10-23] MEDS ORDERED: Lidocaine 1% PF 5 ML VIAL ONE (12:47)
[2021-10-23 15:39] LABS: Fluid, Bilirubin Total 0.3 mg/dL (Not Available)
[2021-10-23 15:54] LABS: RBC Count-Automated (BF) 907 /cu.mm; WBC/Nucleated-Auto (BF) 713 /cu.mm
[2021-10-23 16:22] LABS: BF Color Yellow; Body Fluid Source Ascites Body Fluid; Clarity Hazy (Clear); Tube # EDTA
[2021-10-23 16:26] LABS: BF Segmented Neutrophils 60 %; Cell Count Non Hematic 38 %; Eosinophils 1 %
[2021-10-23] MEDS: Tamsulosin HCl 0.4 MG CAP PO SCH (20:14)
[2021-10-23] MEDS ORDERED: Pregabalin 75 MG CAP PO SCH (21:00)
[2021-10-23] MEDS: Piperacillin/Tazobactam 3.375 GM in Sodium Chloride 0.9% 100 ML IVPB SCH (22:28)
[2021-10-24] MEDS: Piperacillin/Tazobactam 3.375 GM in Sodium Chloride 0.9% 100 ML IVPB SCH ×3 (05:46→23:02)
[2021-10-24 06:13] LABS: #Eosinphils 0.1 thou/uL (0.0-0.7); #Lymphocytes 0.2 thou/uL (1.20-3.40); #Monocytes 0.4 thou/uL (0.11-0.59); #Neutrophils 4.9 thou/uL (1.40-6.50); %Eosinophils 1.2 % (0.0-10.0); %Lymphocytes 4.3 % (21.0-51.0); %Monocytes 6.3 % (0.0-10.0); %Neutrophils 88.2 % (42.0-75.0); Hemoglobin 10.1 g/dL (14.0-18.0); Mean Corpuscular HGB CONC 32.8 g/dL (32.0-36.0); Mean Corpuscular Hemoglobin 32.7 pg (27.0-31.0); Mean Corpuscular Volume 99.8 fL (78.0-98.0); Mean Platelet Volume 10.2 fL (7.4-10.4); Platelet Count 33 thou/uL (130-400); RBC Distribution Width 15.3 % (11.5-14.5); Red Blood Cell (RBC) Count 3.08 mill/uL (4.70-6.10); White Blood Cell (WBC) Count 5.6 thou/uL (4.8-10.8)
[2021-10-24 06:40] LABS: ALT (SGPT) 21 U/L (8-55); AST (SGOT) 26 U/L (5-34); Albumin 2.4 g/dL (3.4-4.8); Alkaline Phosphatase 156 U/L (40-110); Anion Gap 9 mmol/L (10-20); BUN (Urea Nitrogen) 13 mg/dL (8.4-25.7); Bilirubin, Total 2.3 mg/dL (0.2-1.2); Calc. Creatinine Clearance 90 mL/min (70-130); Calcium 7.7 mg/dL (7.8-10.44); Carbon Dioxide 25 mmol/L (23-31); Chloride 106 mmol/L (98-107); Estimated GFR 92; Globulin 1.8 g/dL (2.4-3.5); Glucose 81 mg/dL (83-110); Potassium 4.7 mmol/L (3.5-5.1); Protein, Total 4.2 g/dL (5.8-8.1); Sodium 135 mmol/L (136-145)
[2021-10-24] MEDS ORDERED: Ferrous Sulfate 325 MG TAB PO SCH (08:00)
[2021-10-24] MEDS ORDERED: Non-Formulary Item 1 EACH (Spironolactone [Spironolactone] 50 MG Tablet) PO SCH (09:00)
[2021-10-24] MEDS ORDERED: Pantoprazole 40 MG VIAL IVP SCH (09:00)
[2021-10-24] MEDS: Furosemide 40 MG TAB PO SCH (10:07)
[2021-10-24] MEDS: Tamsulosin HCl 0.4 MG CAP PO SCH ×2 (10:07→20:26)
[2021-10-24] MEDS: Montelukast Sodium 10 mg Tablet PO SCH (10:08)
[2021-10-24] MEDS: Thiamine 100 MG TAB PO SCH (10:08)
[2021-10-24] MEDS: Amlodipine 10 MG TAB PO SCH (10:09)
[2021-10-24] MEDS: Tamsulosin HCl 0.4 MG CAP ONE ×2 (20:33→20:34)
[2021-10-25] MEDS: Piperacillin/Tazobactam 3.375 GM in Sodium Chloride 0.9% 100 ML IVPB SCH ×3 (05:57→22:06)
[2021-10-25 08:20] LABS: #Eosinphils 0.1 thou/uL (0.0-0.7); #Lymphocytes 0.3 thou/uL (1.20-3.40); #Monocytes 0.4 thou/uL (0.11-0.59); %Eosinophils 1.2 % (0.0-10.0); %Lymphocytes 7.1 % (21.0-51.0); %Monocytes 8.2 % (0.0-10.0); %Neutrophils 83.5 % (42.0-75.0); Hemoglobin 10.6 g/dL (14.0-18.0); Mean Corpuscular Hemoglobin 31.4 pg (27.0-31.0); Mean Corpuscular Volume 98.1 fL (78.0-98.0); Mean Platelet Volume 9.6 fL (7.4-10.4); Platelet Count 44 thou/uL (130-400); RBC Distribution Width 15.4 % (11.5-14.5); Red Blood Cell (RBC) Count 3.38 mill/uL (4.70-6.10); White Blood Cell (WBC) Count 4.8 thou/uL (4.8-10.8)
[2021-10-25 08:35] LABS: ALT (SGPT) 19 U/L (8-55); AST (SGOT) 27 U/L (5-34); Albumin 2.6 g/dL (3.4-4.8); Alkaline Phosphatase 160 U/L (40-110); Anion Gap 11 mmol/L (10-20); BUN (Urea Nitrogen) 14 mg/dL (8.4-25.7); Bilirubin, Total 1.6 mg/dL (0.2-1.2); Calc. Creatinine Clearance 86 mL/min (70-130); Calcium 8.1 mg/dL (7.8-10.44); Carbon Dioxide 25 mmol/L (23-31); Chloride 105 mmol/L (98-107); Estimated GFR 90; Globulin 2.1 g/dL (2.4-3.5); Glucose 81 mg/dL (83-110); Potassium 4.1 mmol/L (3.5-5.1); Protein, Total 4.7 g/dL (5.8-8.1); Sodium 137 mmol/L (136-145)
[2021-10-25] MEDS: Furosemide 40 MG TAB PO SCH (10:19)
[2021-10-25] MEDS: Montelukast Sodium 10 mg Tablet PO SCH (10:19)
[2021-10-25] MEDS: Thiamine 100 MG TAB PO SCH (10:19)
[2021-10-25] MEDS: Tamsulosin HCl 0.4 MG CAP PO SCH ×2 (10:19→20:38)
[2021-10-25] MEDS: Amlodipine 10 MG TAB PO SCH (19:48)
[2021-10-26] MEDS: Piperacillin/Tazobactam 3.375 GM in Sodium Chloride 0.9% 100 ML IVPB SCH (05:38)
[2021-10-26 06:22] LABS: #Eosinphils 0.1 thou/uL (0.0-0.7); #Lymphocytes 0.3 thou/uL (1.20-3.40); #Monocytes 0.4 thou/uL (0.11-0.59); #Neutrophils 3.1 thou/uL (1.40-6.50); %Basophils 0.5 % (0.0-1.0); %Eosinophils 2.1 % (0.0-10.0); %Monocytes 10.5 % (0.0-10.0); %Neutrophils 78.9 % (42.0-75.0); Hemoglobin 9.8 g/dL (14.0-18.0); Mean Corpuscular HGB CONC 32.9 g/dL (32.0-36.0); Mean Corpuscular Volume 97.3 fL (78.0-98.0); Mean Platelet Volume 9.4 fL (7.4-10.4); Platelet Count 51 thou/uL (130-400); RBC Distribution Width 15.5 % (11.5-14.5); Red Blood Cell (RBC) Count 3.06 mill/uL (4.70-6.10); White Blood Cell (WBC) Count 3.9 thou/uL (4.8-10.8)
[2021-10-26 06:41] LABS: ALT (SGPT) 16 U/L (8-55); AST (SGOT) 23 U/L (5-34); Albumin 2.4 g/dL (3.4-4.8); Alkaline Phosphatase 148 U/L (40-110); Anion Gap 10 mmol/L (10-20); BUN (Urea Nitrogen) 13 mg/dL (8.4-25.7); Bilirubin, Total 1.2 mg/dL (0.2-1.2); Calc. Creatinine Clearance 73 mL/min (70-130); Calcium 7.8 mg/dL (7.8-10.44); Carbon Dioxide 27 mmol/L (23-31); Chloride 105 mmol/L (98-107); Estimated GFR 74; Globulin 1.8 g/dL (2.4-3.5); Glucose 97 mg/dL (83-110); Potassium 3.3 mmol/L (3.5-5.1); Protein, Total 4.2 g/dL (5.8-8.1); Sodium 139 mmol/L (136-145)
[2021-10-26 08:10] VITALS: BP 149/87; TEMP 98.1
[2021-10-26] MEDS: Amlodipine 10 MG TAB PO SCH (09:12)
[2021-10-26] MEDS: Furosemide 40 MG TAB PO SCH (09:12)
[2021-10-26] MEDS: Tamsulosin HCl 0.4 MG CAP PO SCH (09:12)
[2021-10-26] MEDS: Thiamine 100 MG TAB PO SCH (09:12)
[2021-10-26] MEDS: Montelukast Sodium 10 mg Tablet PO SCH (09:12)
== END 2021-10-26 11:58 | disposition home or self-care (01) | DRG 394 ==
LOC: ERS 08:42 → SURG B 11:30
PROVIDERS: ADMIT Internal Medicine; ATTEND Internal Medicine
PROC: 0W9G3ZZ Drainage of Peritoneal Cavity, Percutaneous Approach (ICD-10-PCS; principal; 2021-10-23)
DX: K91.89 Other postprocedural complications and disorders of digestive system (principal); R18.8 Other ascites; K66.8 Other specified disorders of peritoneum; Z20.822 Contact with and (suspected) exposure to COVID-19; Z96.643 Presence of artificial hip joint, bilateral; D50.9 Iron deficiency anemia, unspecified; M19.90 Unspecified osteoarthritis, unspecified site; J44.9 Chronic obstructive pulmonary disease, unspecified; G62.9 Polyneuropathy, unspecified; G47.33 Obstructive sleep apnea (adult) (pediatric); I12.9 Hypertensive chronic kidney disease with stage 1 through stage 4 chronic kidney disease, or unspecified chronic kidney disease; N18.30 Chronic kidney disease, stage 3 unspecified; K70.31 Alcoholic cirrhosis of liver with ascites; N40.0 Benign prostatic hyperplasia without lower urinary tract symptoms; Z96.653 Presence of artificial knee joint, bilateral; Z90.49 Acquired absence of other specified parts of digestive tract; Z90.09 Acquired absence of other part of head and neck; Z87.891 Personal history of nicotine dependence; Z88.8 Allergy status to other drugs, medicaments and biological substances; Z79.82 Long term (current) use of aspirin; Z79.51 Long term (current) use of inhaled steroids; Z79.899 Other long term (current) drug therapy
CPT/HCPCS: 36415; 49083; 74177; 80053; 81003; 82247; 82550; 83615; 83690; 84484; 85025; 85060; 85610; 85730; 87070; 87205; 89051; 93005; 96365; 96374; 96375; 96376; C9113; J2270; J2405; J2543; J3490; Q9967; U0002

== ENCOUNTER 2021-12-08 11:32 | Outpatient (CLI) | payer MEDICARE ==
[~2021-12-08 11:32] MED LIST changes: +Iopamidol 370 76% 100 ML VIAL ONE; -Magnevist 469MG/ML 20 ML VIAL ONE
== END 2021-12-08 11:33 | disposition home or self-care (01) ==
LOC: CT 11:32
PROVIDERS: ATTEND Psychiatry & Neurology Neurology
DX: G45.9 Transient cerebral ischemic attack, unspecified (principal); R94.5 Abnormal results of liver function studies; I85.00 Esophageal varices without bleeding; I67.89 Other cerebrovascular disease; Z98.890 Other specified postprocedural states; I77.71 Dissection of carotid artery; I65.22 Occlusion and stenosis of left carotid artery; J90 Pleural effusion, not elsewhere classified; K70.31 Alcoholic cirrhosis of liver with ascites
CPT/HCPCS: 70496; 70498; 82565; 93306; Q9967

== ENCOUNTER 2021-12-12 17:49 | Inpatient (IN) | payer OTHER, MEDICARE ==
[2021-12-12 18:45] LABS: #Eosinphils 0.1 thou/uL (0.0-0.7); #Lymphocytes 0.4 thou/uL (1.20-3.40); #Monocytes 0.8 thou/uL (0.11-0.59); %Basophils 0.7 % (0.0-1.0); %Eosinophils 1.6 % (0.0-10.0); %Lymphocytes 7.4 % (21.0-51.0); %Monocytes 14.4 % (0.0-10.0); %Neutrophils 75.9 % (42.0-75.0); Mean Corpuscular HGB CONC 32.8 g/dL (32.0-36.0); Mean Corpuscular Hemoglobin 32.7 pg (27.0-31.0); Mean Corpuscular Volume 99.7 fL (78.0-98.0); Mean Platelet Volume 9.1 fL (7.4-10.4); Platelet Count 78 thou/uL (130-400); RBC Distribution Width 14.1 % (11.5-14.5); Red Blood Cell (RBC) Count 3.05 mill/uL (4.70-6.10); White Blood Cell (WBC) Count 5.3 thou/uL (4.8-10.8)
[2021-12-12 19:10] LABS: ALT (SGPT) 11 U/L (8-55); AST (SGOT) 31 U/L (5-34); Albumin 2.3 g/dL (3.4-4.8); Alkaline Phosphatase 175 U/L (40-110); Anion Gap 14 mmol/L (10-20); BUN (Urea Nitrogen) 14 mg/dL (8.4-25.7); Bilirubin, Total 1.3 mg/dL (0.2-1.2); Calc. Creatinine Clearance 0 mL/min (70-130); Calcium 7.7 mg/dL (7.8-10.44); Carbon Dioxide 22 mmol/L (23-31); Chloride 102 mmol/L (98-107); Estimated GFR 51; Globulin 1.8 g/dL (2.4-3.5); Glucose 78 mg/dL (83-110); Potassium 4.5 mmol/L (3.5-5.1); Protein, Total 4.1 g/dL (5.8-8.1); Sodium 133 mmol/L (136-145)
[2021-12-12] MEDS ORDERED: Morphine 4 MG/ML VIAL ONE (20:09)
[2021-12-12] MEDS ORDERED: Calcium Gluc 4.6 MEQ/10 ML (100 MG/ML) ONE (20:45)
[2021-12-12] MEDS ORDERED: Morphine 4 MG/ML VIAL SLOW IVP PRN (22:30)
[2021-12-12] MEDS ORDERED: Morphine 2 MG/ML VIAL SLOW IVP PRN (22:30)
[2021-12-12] MEDS ORDERED: Ondansetron ODT 4 MG TAB PO PRN (22:30)
[2021-12-12] MEDS ORDERED: Ondansetron PF 4 MG/2 ML Vial IVP PRN (22:30)
[2021-12-12] MEDS ORDERED: Promethazine HCl 25 MG/ML VIAL IM PRN (22:30)
[2021-12-12] MEDS ORDERED: hydrALAZINE 20 MG/ML VIAL SLOW IVP PRN (22:30)
[2021-12-12] MEDS ORDERED: Dextrose 50% Abboject 50 ML SYRINGE SLOW IVP PRN (22:30)
[2021-12-12] MEDS ORDERED: Dextrose 5% in Water 1,000 ML IV PRN (22:30)
[2021-12-12] MEDS ORDERED: Acetaminophen/Codeine 30-300mg Tablet PO PRN (22:34)
[2021-12-12] MEDS ORDERED: Gabapentin 100 MG CAP PO SCH (22:45)
[2021-12-12] MEDS ORDERED: Morphine 2 MG/ML VIAL ONE (22:47)
[2021-12-12 23:06] LABS: Magnesium 1.7 mg/dL (1.6-2.6); Phosphorus 3.5 mg/dL (2.3-4.7)
[2021-12-13] VITALS: BMI 25.1
[2021-12-13] MEDS: Sodium Chloride 0.9% 1,000 ML IV SCH ×3 (00:07→21:31)
[2021-12-13] MEDS: Acetaminophen/Codeine 30-300mg Tablet PO SCH ×2 (00:08→05:17)
[2021-12-13 00:56] LABS: Bilirubin Negative (Negative); Blood, Urine Negative (Negative); Clarity Clear (Clear); Glucose, Urine (Dipstick) Normal (Negative); Ketone, Urine Negative (Negative); Leukocyte Negative Leu/uL (Negative); Nitrite Negative (Negative); Protein, Urine (Dipstick) Negative (Neg-Trace); Specific Gravity, Urine 1.018 (1.002-1.036); Urobilinogen Normal mg/dL (Less than 2); pH, Urine 5.5 (5.0-9.0)
[2021-12-13] MEDS ORDERED: Magnesium 2 GM/50 ML(in water) 2 GM in Premix Bag 1 BAG IVPB SCH (04:00)
[2021-12-13] MEDS ORDERED: Gabapentin 100 MG CAP PO SCH (06:00)
[2021-12-13 06:08] LABS: #Eosinphils 0.1 thou/uL (0.0-0.7); #Lymphocytes 0.6 thou/uL (1.20-3.40); #Neutrophils 5.4 thou/uL (1.40-6.50); %Basophils 0.4 % (0.0-1.0); %Eosinophils 1.3 % (0.0-10.0); %Lymphocytes 8.5 % (21.0-51.0); %Monocytes 14.3 % (0.0-10.0); %Neutrophils 75.4 % (42.0-75.0); Hemoglobin 9.6 g/dL (14.0-18.0); Mean Corpuscular HGB CONC 32.8 g/dL (32.0-36.0); Mean Platelet Volume 8.9 fL (7.4-10.4); Platelet Count 81 thou/uL (130-400); RBC Distribution Width 14.1 % (11.5-14.5); Red Blood Cell (RBC) Count 2.92 mill/uL (4.70-6.10); White Blood Cell (WBC) Count 7.2 thou/uL (4.8-10.8)
[2021-12-13 06:26] LABS: Phosphorus 4.5 mg/dL (2.3-4.7)
[2021-12-13 06:28] LABS: Anion Gap 14 mmol/L (10-20); BUN (Urea Nitrogen) 17 mg/dL (8.4-25.7); Calc. Creatinine Clearance 46 mL/min (70-130); Calcium 8.1 mg/dL (7.8-10.44); Carbon Dioxide 24 mmol/L (23-31); Chloride 100 mmol/L (98-107); Estimated GFR 43; Glucose 107 mg/dL (83-110); Magnesium 2.8 mg/dL (1.6-2.6); Potassium 5.3 mmol/L (3.5-5.1); Sodium 133 mmol/L (136-145)
[2021-12-13] MEDS ORDERED: Sodium Chloride 0.9% 500 ML IV SCH (06:45)
[2021-12-13 08:58] LABS: INR-International Normal Ratio 1.6; Prothrombin Time 19.6 sec (12.0-14.7)
[2021-12-13 08:59] LABS: PTT 44.4 sec (22.9-36.1)
[2021-12-13] MEDS ORDERED: Famotidine 20 MG TAB PO SCH (09:00)
[2021-12-13] MEDS: Polyethylene Glycol 3350 17 GM Packet PO SCH (09:19)
[2021-12-13] MEDS ORDERED: traMADol HCl 50 MG TAB PO PRN ×2 (10:07→21:03)
[2021-12-13] MEDS: traMADol HCl 50 MG TAB PO SCH ×3 (12:19→21:24)
[2021-12-13] MEDS ORDERED: Albuterol 200 PUFF (6.7GM INHALER) INH PRN (12:19)
[2021-12-13] MEDS: Senokot S 8.6-50 MG TAB PO SCH ×2 (12:20→21:20)
[2021-12-13] MEDS ORDERED: Albuterol Sulfate 2.5 mg/3 ml Neb NEB PRN (12:30)
[2021-12-13 17:45] LABS: Anion Gap 12 mmol/L (10-20); BUN (Urea Nitrogen) 19 mg/dL (8.4-25.7); Calc. Creatinine Clearance 46 mL/min (70-130); Calcium 7.7 mg/dL (7.8-10.44); Carbon Dioxide 21 mmol/L (23-31); Chloride 98 mmol/L (98-107); Estimated GFR 44; Glucose 120 mg/dL (83-110); Magnesium 2.1 mg/dL (1.6-2.6); Phosphorus 4.2 mg/dL (2.3-4.7); Potassium 4.9 mmol/L (3.5-5.1); Sodium 126 mmol/L (136-145)
[2021-12-13] MEDS ORDERED: Hydrocortisone Sod Succ/PF 100 mg/2 ml Vial IVP SCH (18:15)
[2021-12-13] MEDS ORDERED: Non-Formulary Item 1 EACH (Magnesium Oxide [Mag-Oxide] 200 MG Tablet) PO SCH (21:00)
[2021-12-13] MEDS ORDERED: THIAMINE HCL 100 MG PO SCH (21:00)
[2021-12-13] MEDS ORDERED: Ascorbic Acid 500 mg Chewable Tablet PO SCH (21:00)
[2021-12-13] MEDS ORDERED: Non-Formulary Item 1 EACH (Pregabalin [Lyrica] 150 MG Cap) PO SCH (21:00)
[2021-12-13] MEDS: Sodium Chloride 1 GM TAB PO SCH (21:20)
[2021-12-13] MEDS: Ferrous Sulfate 325 MG TAB PO SCH (21:20)
[2021-12-13] MEDS: Magnesium Oxide 400 MG TAB PO SCH (21:21)
[2021-12-13] MEDS: Thiamine 100 MG TAB PO SCH (21:21)
[2021-12-13] MEDS: Tamsulosin HCl 0.4 MG CAP PO SCH (21:21)
[2021-12-13] MEDS: Pregabalin 75 MG CAP PO SCH (21:23)
[2021-12-14] MEDS: Hydrocortisone Sod Succ/PF 100 mg/2 ml Vial IVP SCH ×3 (03:52→20:26)
[2021-12-14 05:55] LABS: #Lymphocytes 0.1 thou/uL (1.20-3.40); #Monocytes 0.3 thou/uL (0.11-0.59); #Neutrophils 3.3 thou/uL (1.40-6.50); %Basophils 1.2 % (0.0-1.0); %Eosinophils 0.3 % (0.0-10.0); %Lymphocytes 3.1 % (21.0-51.0); %Monocytes 7.3 % (0.0-10.0); %Neutrophils 88.2 % (42.0-75.0); Hemoglobin 8.7 g/dL (14.0-18.0); Mean Corpuscular HGB CONC 34.1 g/dL (32.0-36.0); Mean Corpuscular Hemoglobin 33.8 pg (27.0-31.0); Mean Corpuscular Volume 99.3 fL (78.0-98.0); Mean Platelet Volume 9.2 fL (7.4-10.4); Platelet Count 49 thou/uL (130-400); RBC Distribution Width 13.9 % (11.5-14.5); Red Blood Cell (RBC) Count 2.56 mill/uL (4.70-6.10); White Blood Cell (WBC) Count 3.8 thou/uL (4.8-10.8)
[2021-12-14 06:09] LABS: ALT (SGPT) 14 U/L (8-55); AST (SGOT) 32 U/L (5-34); Albumin 2.4 g/dL (3.4-4.8); Alkaline Phosphatase 166 U/L (40-110); Anion Gap 12 mmol/L (10-20); BUN (Urea Nitrogen) 21 mg/dL (8.4-25.7); Bilirubin, Direct 0.5 mg/dL (0.1-0.3); Calc. Creatinine Clearance 44 mL/min (70-130); Calcium 7.6 mg/dL (7.8-10.44); Carbon Dioxide 21 mmol/L (23-31); Chloride 100 mmol/L (98-107); Estimated GFR 41; Glucose 167 mg/dL (83-110); Magnesium 2.1 mg/dL (1.6-2.6); Phosphorus 4.4 mg/dL (2.3-4.7); Potassium 4.9 mmol/L (3.5-5.1); Protein, Total 4.1 g/dL (5.8-8.1); Sodium 128 mmol/L (136-145)
[2021-12-14 06:18] LABS: INR-International Normal Ratio 1.5; Prothrombin Time 18.6 sec (12.0-14.7)
[2021-12-14 06:19] LABS: PTT 47.9 sec (22.9-36.1)
[2021-12-14] MEDS: traMADol HCl 50 MG TAB PO SCH ×3 (06:28→21:07)
[2021-12-14] MEDS: Sodium Chloride 1 GM TAB PO SCH ×3 (06:29→20:30)
[2021-12-14] MEDS ORDERED: Non-Formulary Item 1 EACH (Lactulose [Lactulose] 10 GM Packet) PO SCH (09:00)
[2021-12-14] MEDS ORDERED: Furosemide 20 MG TAB PO SCH (09:00)
[2021-12-14] MEDS: Montelukast Sodium 10 mg Tablet PO SCH (09:58)
[2021-12-14] MEDS: Atorvastatin Calcium 20 MG TAB PO SCH (09:58)
[2021-12-14] MEDS: Polyethylene Glycol 3350 17 GM Packet PO SCH (09:58)
[2021-12-14] MEDS: Senokot S 8.6-50 MG TAB PO SCH ×2 (09:58→20:29)
[2021-12-14] MEDS: Pregabalin 75 MG CAP PO SCH ×2 (09:58→20:31)
[2021-12-14] MEDS ORDERED: Albumin 25% 25 GM/100 ML BOT IVPB SCH (11:00)
[2021-12-14] MEDS: Midodrine HCl 5 MG TAB PO SCH ×2 (14:42→20:29)
[2021-12-14] MEDS: Tamsulosin HCl 0.4 MG CAP PO SCH (20:29)
[2021-12-14] MEDS: Ascorbic Acid 500 mg Chewable Tablet PO SCH (20:30)
[2021-12-14] MEDS: Thiamine 100 MG TAB PO SCH (20:30)
[2021-12-14] MEDS: Ferrous Sulfate 325 MG TAB PO SCH (20:30)
[2021-12-14] MEDS: Magnesium Oxide 400 MG TAB PO SCH (20:31)
[2021-12-15] MEDS: Hydrocortisone Sod Succ/PF 100 mg/2 ml Vial IVP SCH (02:20)
[2021-12-15] MEDS: Sodium Chloride 1 GM TAB PO SCH ×3 (06:00→21:25)
[2021-12-15] MEDS: traMADol HCl 50 MG TAB PO SCH ×2 (06:00→14:41)
[2021-12-15 06:01] LABS: #Lymphocytes 0.2 thou/uL (1.20-3.40); #Monocytes 0.6 thou/uL (0.11-0.59); #Neutrophils 4.1 thou/uL (1.40-6.50); %Lymphocytes 3.3 % (21.0-51.0); %Monocytes 11.5 % (0.0-10.0); %Neutrophils 85.2 % (42.0-75.0); Hemoglobin 8.1 g/dL (14.0-18.0); Mean Corpuscular HGB CONC 33.4 g/dL (32.0-36.0); Mean Corpuscular Hemoglobin 33.2 pg (27.0-31.0); Mean Corpuscular Volume 99.2 fL (78.0-98.0); Mean Platelet Volume 9.4 fL (7.4-10.4); Platelet Count 60 thou/uL (130-400); Red Blood Cell (RBC) Count 2.45 mill/uL (4.70-6.10); White Blood Cell (WBC) Count 4.8 thou/uL (4.8-10.8)
[2021-12-15 06:04] LABS: Anion Gap 12 mmol/L (10-20); BUN (Urea Nitrogen) 23 mg/dL (8.4-25.7); Calc. Creatinine Clearance 43 mL/min (70-130); Calcium 7.9 mg/dL (7.8-10.44); Carbon Dioxide 22 mmol/L (23-31); Chloride 102 mmol/L (98-107); Estimated GFR 40; Glucose 137 mg/dL (83-110); Magnesium 2.3 mg/dL (1.6-2.6); Phosphorus 3.9 mg/dL (2.3-4.7); Potassium 5.5 mmol/L (3.5-5.1); Sodium 130 mmol/L (136-145)
[2021-12-15] MEDS ORDERED: Dextrose 25% Abboject 10 ML SYRINGE SLOW IVP SCH (06:39)
[2021-12-15] MEDS ORDERED: Insulin Regular 300 UNITS/3 ML VIAL IVP SCH (06:45)
[2021-12-15] MEDS ORDERED: Dextrose 50% Abboject 50 ML SYRINGE SLOW IVP SCH (07:15)
[2021-12-15] MEDS: Polyethylene Glycol 3350 17 GM Packet PO SCH (08:32)
[2021-12-15] MEDS: Senokot S 8.6-50 MG TAB PO SCH ×2 (08:33→21:24)
[2021-12-15] MEDS: Montelukast Sodium 10 mg Tablet PO SCH (08:34)
[2021-12-15] MEDS: Midodrine HCl 5 MG TAB PO SCH ×3 (08:34→21:24)
[2021-12-15] MEDS: Pregabalin 75 MG CAP PO SCH ×2 (08:35→21:25)
[2021-12-15] MEDS: Atorvastatin Calcium 20 MG TAB PO SCH (08:35)
[2021-12-15] MEDS: Cyclobenzaprine 10 MG TAB PO PRN ×2 (11:16→23:30)
[2021-12-15 15:42] LABS: Anion Gap 15 mmol/L (10-20); BUN (Urea Nitrogen) 23 mg/dL (8.4-25.7); Calc. Creatinine Clearance 43 mL/min (70-130); Calcium 7.8 mg/dL (7.8-10.44); Carbon Dioxide 19 mmol/L (23-31); Chloride 101 mmol/L (98-107); Estimated GFR 41; Glucose 121 mg/dL (83-110); Potassium 3.8 mmol/L (3.5-5.1); Sodium 131 mmol/L (136-145)
[2021-12-15] MEDS ORDERED: Oxymetazoline HCl 0.05% (30 ML BOT) NS PRN (16:45)
[2021-12-15] MEDS: Ascorbic Acid 500 mg Chewable Tablet PO SCH (21:24)
[2021-12-15] MEDS: Ferrous Sulfate 325 MG TAB PO SCH (21:24)
[2021-12-15] MEDS: Thiamine 100 MG TAB PO SCH (21:25)
[2021-12-15] MEDS: Tamsulosin HCl 0.4 MG CAP PO SCH (21:25)
[2021-12-16] MEDS ORDERED: Morphine 2 MG/ML VIAL SLOW IVP SCH (00:15)
[2021-12-16] MEDS: traMADol HCl 50 MG TAB PO SCH ×2 (00:37→16:37)
[2021-12-16] MEDS: Sodium Chloride 1 GM TAB PO SCH ×3 (05:08→20:43)
[2021-12-16 07:23] LABS: Anion Gap 14 mmol/L (10-20); BUN (Urea Nitrogen) 25 mg/dL (8.4-25.7); Calc. Creatinine Clearance 41 mL/min (70-130); Calcium 7.4 mg/dL (7.8-10.44); Carbon Dioxide 20 mmol/L (23-31); Chloride 103 mmol/L (98-107); Estimated GFR 38; Glucose 78 mg/dL (83-110); Magnesium 2.1 mg/dL (1.6-2.6); Phosphorus 1.8 mg/dL (2.3-4.7); Potassium 3.5 mmol/L (3.5-5.1); Sodium 133 mmol/L (136-145)
[2021-12-16] MEDS: Senokot S 8.6-50 MG TAB PO SCH ×2 (08:32→22:08)
[2021-12-16] MEDS: Pregabalin 75 MG CAP PO SCH ×2 (08:32→20:41)
[2021-12-16] MEDS: Montelukast Sodium 10 mg Tablet PO SCH (08:33)
[2021-12-16] MEDS: Atorvastatin Calcium 20 MG TAB PO SCH (08:33)
[2021-12-16] MEDS: Midodrine HCl 5 MG TAB PO SCH ×3 (08:34→20:42)
[2021-12-16] MEDS: traMADol HCl 50 MG TAB PO PRN (09:08)
[2021-12-16] MEDS ORDERED: Sodium Phosphate 30 MMOL in Sodium Chloride 0.9% 250 ML 250 ML IVPB SCH (10:00)
[2021-12-16 10:02] LABS: Band 15 % (5-11); Hemoglobin 8.1 g/dL (14.0-18.0); Lymphocytes 11 % (21-51); MDiff Complete? YES; Mean Corpuscular HGB CONC 32.6 g/dL (32.0-36.0); Mean Corpuscular Hemoglobin 32.4 pg (27.0-31.0); Mean Corpuscular Volume 99.4 fL (78.0-98.0); Mean Platelet Volume 9.6 fL (7.4-10.4); Metamyelocyte 1 % (0-0); Monocytes 8 % (0-10); Neutrophil 65 % (42-75); Nucleated RBC 1 % (0); Platelet Count 46 thou/uL (130-400); Platelet Morphology Comment Appears Decreased; RBC Distribution Width 14.5 % (11.5-14.5); RBC Morphology Normal; White Blood Cell (WBC) Count 3.1 thou/uL (4.8-10.8)
[2021-12-16] MEDS: Neostigmine 0.5 MG in Pre-Filled Syringe 1 EACH SC SCH ×2 (16:36→21:04)
[2021-12-16] MEDS: Albumin 25% 25 GM/100 ML BOT IVPB SCH ×2 (18:07→23:27)
[2021-12-16] MEDS: Ascorbic Acid 500 mg Chewable Tablet PO SCH (20:39)
[2021-12-16] MEDS: Ferrous Sulfate 325 MG TAB PO SCH (20:40)
[2021-12-16] MEDS: Thiamine 100 MG TAB PO SCH (20:40)
[2021-12-16] MEDS: Tamsulosin HCl 0.4 MG CAP PO SCH (20:41)
[2021-12-17] MEDS: Albumin 25% 25 GM/100 ML BOT IVPB SCH ×3 (00:02→12:47)
[2021-12-17] MEDS: Neostigmine 0.5 MG in Pre-Filled Syringe 1 EACH SC SCH ×5 (00:10→18:55)
[2021-12-17] MEDS: traMADol HCl 50 MG TAB PO SCH ×2 (00:12→14:48)
[2021-12-17] MEDS: Sodium Chloride 1 GM TAB PO SCH ×3 (05:15→22:00)
[2021-12-17 06:14] LABS: Hemoglobin 7.6 g/dL (14.0-18.0); Mean Corpuscular HGB CONC 33.4 g/dL (32.0-36.0); Mean Corpuscular Volume 98.9 fL (78.0-98.0); Platelet Count 40 thou/uL (130-400); RBC Distribution Width 14.3 % (11.5-14.5); Red Blood Cell (RBC) Count 2.32 mill/uL (4.70-6.10); White Blood Cell (WBC) Count 3.7 thou/uL (4.8-10.8)
[2021-12-17 06:17] LABS: Anion Gap 12 mmol/L (10-20); BUN (Urea Nitrogen) 31 mg/dL (8.4-25.7); Calc. Creatinine Clearance 43 mL/min (70-130); Calcium 7.4 mg/dL (7.8-10.44); Carbon Dioxide 22 mmol/L (23-31); Chloride 104 mmol/L (98-107); Estimated GFR 41; Glucose 85 mg/dL (83-110); Magnesium 2.2 mg/dL (1.6-2.6); Phosphorus 3.6 mg/dL (2.3-4.7); Potassium 3.4 mmol/L (3.5-5.1); Sodium 135 mmol/L (136-145)
[2021-12-17 06:48] LABS: Band 32 % (5-11); Eosinophils 1 % (0-10); Lymphocytes 13 % (21-51); MDiff Complete? YES; Monocytes 11 % (0-10); Neutrophil 43 % (42-75); Platelet Morphology Comment Appears Decreased
[2021-12-17] MEDS: Senokot S 8.6-50 MG TAB PO SCH ×2 (09:28→20:08)
[2021-12-17] MEDS: Montelukast Sodium 10 mg Tablet PO SCH (09:28)
[2021-12-17] MEDS: Atorvastatin Calcium 20 MG TAB PO SCH (09:28)
[2021-12-17] MEDS: Pregabalin 75 MG CAP PO SCH ×2 (09:28→20:05)
[2021-12-17] MEDS: Midodrine HCl 5 MG TAB PO SCH ×3 (09:46→20:05)
[2021-12-17] MEDS ORDERED: Potassium Chloride 20 MEQ TAB PO SCH (10:15)
[2021-12-17] MEDS: Ascorbic Acid 500 mg Chewable Tablet PO SCH (20:03)
[2021-12-17] MEDS: Ferrous Sulfate 325 MG TAB PO SCH (20:03)
[2021-12-17] MEDS: Thiamine 100 MG TAB PO SCH (20:07)
[2021-12-17] MEDS: Tamsulosin HCl 0.4 MG CAP PO SCH (20:07)
[2021-12-17] MEDS: traMADol HCl 50 MG TAB PO PRN (22:05)
[2021-12-18] MEDS: Neostigmine 0.5 MG in Pre-Filled Syringe 1 EACH SC SCH ×3 (00:53→13:00)
[2021-12-18] MEDS: traMADol HCl 50 MG TAB PO SCH ×2 (01:05→15:22)
[2021-12-18] MEDS: Sodium Chloride 1 GM TAB PO SCH ×2 (06:17→15:23)
[2021-12-18 06:33] LABS: Anion Gap 13 mmol/L (10-20); BUN (Urea Nitrogen) 27 mg/dL (8.4-25.7); Calc. Creatinine Clearance 52 mL/min (70-130); Calcium 7.7 mg/dL (7.8-10.44); Carbon Dioxide 22 mmol/L (23-31); Chloride 107 mmol/L (98-107); Estimated GFR 51; Glucose 74 mg/dL (83-110); Magnesium 2.2 mg/dL (1.6-2.6); Potassium 3.7 mmol/L (3.5-5.1); Sodium 138 mmol/L (136-145)
[2021-12-18] MEDS: Senokot S 8.6-50 MG TAB PO SCH (08:56)
[2021-12-18] MEDS: Midodrine HCl 5 MG TAB PO SCH ×2 (08:56→15:23)
[2021-12-18] MEDS: Pregabalin 75 MG CAP PO SCH (08:58)
[2021-12-18] MEDS: Atorvastatin Calcium 20 MG TAB PO SCH (08:58)
[2021-12-18] MEDS: Montelukast Sodium 10 mg Tablet PO SCH (08:58)
[2021-12-18] MEDS ORDERED: Dronabinol 2.5 MG CAP PO SCH (16:30)
[2021-12-18 17:13] VITALS: BP 148/72; TEMP 98
== END 2021-12-18 17:50 | DRG 536 ==
LOC: ERS 17:49 → SJJU 21:24
PROVIDERS: ADMIT Specialist; ATTEND Specialist
PROC: 0W9G3ZZ Drainage of Peritoneal Cavity, Percutaneous Approach (ICD-10-PCS; principal; 2021-12-11)
DX: S72.145A Nondisplaced intertrochanteric fracture of left femur, initial encounter for closed fracture (principal); M97.02XA Periprosthetic fracture around internal prosthetic left hip joint, initial encounter; R18.8 Other ascites; N17.9 Acute kidney failure, unspecified; E27.40 Unspecified adrenocortical insufficiency; K56.0 Paralytic ileus; E87.1 Hypo-osmolality and hyponatremia; E87.2 Acidosis; Z20.822 Contact with and (suspected) exposure to COVID-19; K74.60 Unspecified cirrhosis of liver; K21.9 Gastro-esophageal reflux disease without esophagitis; G62.9 Polyneuropathy, unspecified; D69.6 Thrombocytopenia, unspecified; D50.9 Iron deficiency anemia, unspecified; J44.9 Chronic obstructive pulmonary disease, unspecified; G47.33 Obstructive sleep apnea (adult) (pediatric); M19.90 Unspecified osteoarthritis, unspecified site; Z96.653 Presence of artificial knee joint, bilateral; Z96.643 Presence of artificial hip joint, bilateral; Z96.698 Presence of other orthopedic joint implants; S50.811A Abrasion of right forearm, initial encounter; I12.9 Hypertensive chronic kidney disease with stage 1 through stage 4 chronic kidney disease, or unspecified chronic kidney disease; N18.30 Chronic kidney disease, stage 3 unspecified; S80.811A Abrasion, right lower leg, initial encounter; W18.30XA Fall on same level, unspecified, initial encounter; E87.5 Hyperkalemia; E83.39 Other disorders of phosphorus metabolism; E88.09 Other disorders of plasma-protein metabolism, not elsewhere classified; E83.51 Hypocalcemia; K59.00 Constipation, unspecified; Y92.513 Shop (commercial) as the place of occurrence of the external cause; Z85.810 Personal history of malignant neoplasm of tongue; Z90.49 Acquired absence of other specified parts of digestive tract; Z90.89 Acquired absence of other organs; Z98.890 Other specified postprocedural states; Z79.899 Other long term (current) drug therapy; Z79.82 Long term (current) use of aspirin; Z88.8 Allergy status to other drugs, medicaments and biological substances
CPT/HCPCS: 36415; 49083; 71045; 74022; 74176; 76770; 80048; 80053; 80076; 81003; 82105; 82533; 83735; 84100; 84484; 85025; 85610; 85730; 86850; 86900; 86901; 93005; 93010; 93880; 94640; 96374; 96375; 96376; G0390; J0610; J1720; J1815; J2270; J2405; J2710; J3475; J7030; J7050; J7620; J7999; P9045; P9047; Q0162; U0003; U0005

== ENCOUNTER 2022-03-22 10:25 | Outpatient (CLI) | payer MEDICARE | END 2022-03-22 10:26 | disposition home or self-care (01) | LOC: RAD-FRANK 10:25 | PROVIDERS: ATTEND Nurse Practitioner Family | DX: M79.672 Pain in left foot (principal); M19.072 Primary osteoarthritis, left ankle and foot; M25.872 Other specified joint disorders, left ankle and foot; M77.9 Enthesopathy, unspecified ==

== ENCOUNTER 2022-04-03 13:03 | Emergency (ER) | payer MEDICARE ==
[2022-04-03 14:02] LABS: INR-International Normal Ratio 1.4; PTT 38.3 sec (22.9-36.1); Prothrombin Time 17.5 sec (12.0-14.7)
[2022-04-03 14:09] LABS: ALT (SGPT) 34 U/L (8-55); AST (SGOT) 54 U/L (5-34); Albumin 2.9 g/dL (3.4-4.8); Alkaline Phosphatase 249 U/L (40-110); Anion Gap 19 mmol/L (10-20); BUN (Urea Nitrogen) 61 mg/dL (8.4-25.7); Bilirubin, Total 2.7 mg/dL (0.2-1.2); Calc. Creatinine Clearance 0 mL/min (70-130); Calcium 8.2 mg/dL (7.8-10.44); Carbon Dioxide 23 mmol/L (23-31); Chloride 100 mmol/L (98-107); Estimated GFR 8; Globulin 2.5 g/dL (2.4-3.5); Glucose 117 mg/dL (83-110); Lipase 39 U/L (8-78); Potassium 5.1 mmol/L (3.5-5.1); Protein, Total 5.4 g/dL (5.8-8.1); Sodium 137 mmol/L (136-145)
[2022-04-03 14:26] LABS: #Lymphocytes 0.2 thou/uL (1.20-3.40); #Monocytes 0.4 thou/uL (0.11-0.59); #Neutrophils 3.8 thou/uL (1.40-6.50); %Basophils 0.2 % (0.0-1.0); %Eosinophils 0.3 % (0.0-10.0); %Lymphocytes 4.5 % (21.0-51.0); %Neutrophils 85.1 % (42.0-75.0); Burr Cells SLIGHT = 2-5 cells (100X) (0-1/hpf); Hemoglobin 8.9 g/dL (14.0-18.0); MDiff Complete? YES; Mean Corpuscular HGB CONC 32.6 g/dL (32.0-36.0); Mean Corpuscular Hemoglobin 32.7 pg (27.0-31.0); Mean Platelet Volume 12.3 fL (7.4-10.4); Platelet Count 32 10x3/uL (130-400); Platelet Morphology Comment Appears Adequate; Polychromasia SLIGHT = 2-3 cells (100X) (0-2/hpf); RBC Distribution Width 16.7 % (11.5-14.5); Red Blood Cell (RBC) Count 2.73 mill/uL (4.70-6.10); Schistocytes SLIGHT = 2-5 cells (100X) (0-1/hpf); White Blood Cell (WBC) Count 4.4 10x3/uL (4.8-10.8)
== END 2022-04-03 14:45 | disposition home or self-care (01) ==
LOC: ERS 13:03
DX: K74.60 Unspecified cirrhosis of liver (principal); R53.1 Weakness; J44.9 Chronic obstructive pulmonary disease, unspecified; Z20.822 Contact with and (suspected) exposure to COVID-19; Z79.82 Long term (current) use of aspirin; Z79.899 Other long term (current) drug therapy; Z87.891 Personal history of nicotine dependence
CPT/HCPCS: 36415; 70450; 71045; 80053; 82140; 82550; 83690; 84484; 93005; U0003; U0005

== ENCOUNTER 2022-04-05 11:32 | Inpatient (IN) | payer MEDICARE ==
[2022-04-05] MEDS ORDERED: LORazepam 2 MG/ML SYR.(CARPUJECT) ONE (11:48)
[2022-04-05 12:37] LABS: #Lymphocytes 0.2 thou/uL (1.20-3.40); #Monocytes 0.5 thou/uL (0.11-0.59); #Neutrophils 4.4 thou/uL (1.40-6.50); %Eosinophils 0.3 % (0.0-10.0); %Lymphocytes 4.2 % (21.0-51.0); %Monocytes 9.4 % (0.0-10.0); Hemoglobin 9.5 g/dL (14.0-18.0); Mean Corpuscular HGB CONC 32.8 g/dL (32.0-36.0); Mean Corpuscular Hemoglobin 32.6 pg (27.0-31.0); Mean Corpuscular Volume 99.5 fl (78.0-98.0); Mean Platelet Volume 11.7 fL (7.4-10.4); Platelet Count 42 10x3/uL (130-400); RBC Distribution Width 16.4 % (11.5-14.5); Red Blood Cell (RBC) Count 2.92 mill/uL (4.70-6.10); White Blood Cell (WBC) Count 5.2 10x3/uL (4.8-10.8)
[2022-04-05 12:58] LABS: ALT (SGPT) 30 U/L (8-55); AST (SGOT) 60 U/L (5-34); Acetaminophen Less than 10.0 mcg/mL (10.0-30.0); Albumin 2.7 g/dL (3.4-4.8); Alcohol Less than 10 mg/dL (Less than 10); Alkaline Phosphatase 271 U/L (40-110); Anion Gap 21 mmol/L (10-20); BUN (Urea Nitrogen) 75 mg/dL (8.4-25.7); Bilirubin, Total 2.2 mg/dL (0.2-1.2); Calc. Creatinine Clearance 0 mL/min (70-130); Calcium 7.3 mg/dL (7.8-10.44); Carbon Dioxide 20 mmol/L (23-31); Chloride 103 mmol/L (98-107); Estimated GFR 7; Globulin 2.2 g/dL (2.4-3.5); Glucose 97 mg/dL (83-110); Lipase 78 U/L (8-78); Potassium 4.5 mmol/L (3.5-5.1); Protein, Total 4.9 g/dL (5.8-8.1); Salicylate Less than 8.0 mg/dL (15.0-30.0); Sodium 139 mmol/L (136-145)
[2022-04-05 13:21] LABS: CKMB 2.5 ng/mL (0-6.6)
[2022-04-05 13:48] LABS: Bacteria/HPF None Seen HPF (None Seen); Bilirubin Negative (Negative); Blood, Urine Trace (Negative); Clarity Clear (Clear); Glucose, Urine (Dipstick) Normal (Negative); Ketone, Urine Negative (Negative); Leukocyte Negative Leu/uL (Negative); Nitrite Negative (Negative); Protein, Urine (Dipstick) 50 mg/dL (Neg-Trace); RBC/HPF 0-3 HPF (0-3); Specific Gravity, Urine 1.016 (1.002-1.036); Squamous Epithelial None Seen HPF (0-3); Urobilinogen Normal mg/dL (Less than 2)
[2022-04-05 13:56] LABS: Amphetamine Not Detected (NotDetected); Barbiturates Screen Not Detected (NotDetected); Benzodiazepine Screen Not Detected (NotDetected); Cocaine Metabolite Screen Not Detected (NotDetected); Methadone Not Detected (NotDetected); Methamphetamine Not Detected (NotDetected); Opiate Screen Detected (NotDetected); Oxycodone Screen Not Detected (NotDetected); Phencyclidine (PCP) Not Detected (NotDetected); THC/Cannabinoid Screen Not Detected (NotDetected); Tricyclic Screen Not Detected (NotDetected)
[2022-04-05] MEDS ORDERED: Senokot S 8.6-50 MG TAB PO PRN (14:47)
[2022-04-05] MEDS ORDERED: Bisacodyl 5 MG TAB PO PRN (14:47)
[2022-04-05] MEDS ORDERED: Sodium Chloride 0.9% 1,000 ML IV SCH (15:00)
[2022-04-05 15:36] LABS: Lactic Acid 1.7 mmol/L (0.5-2.2)
[2022-04-05] MEDS ORDERED: Heparin 5,000 UNITS/ML VIAL SC SCH (21:00)
[2022-04-06 00:51] VITALS: BMI 23.5
[2022-04-06] MEDS ORDERED: Ondansetron PF 4 MG/2 ML Vial IVP PRN (01:34)
[2022-04-06] MEDS ORDERED: Sodium Chloride 0.9% 1,000 ML IV SCH (01:34)
[2022-04-06] MEDS ORDERED: Ondansetron ODT 4 MG TAB SL PRN (01:34)
[2022-04-06 04:56] LABS: #Eosinphils 0.1 thou/uL (0.0-0.7); #Lymphocytes 0.3 thou/uL (1.20-3.40); #Monocytes 0.3 thou/uL (0.11-0.59); #Neutrophils 2.6 thou/uL (1.40-6.50); %Basophils 0.5 % (0.0-1.0); %Eosinophils 2.8 % (0.0-10.0); %Lymphocytes 8.7 % (21.0-51.0); %Monocytes 9.6 % (0.0-10.0); %Neutrophils 78.4 % (42.0-75.0); Hemoglobin 9.5 g/dL (14.0-18.0); Mean Corpuscular HGB CONC 32.9 g/dL (32.0-36.0); Mean Corpuscular Hemoglobin 33.4 pg (27.0-31.0); Mean Platelet Volume 12.7 fL (7.4-10.4); Platelet Count 35 10x3/uL (130-400); RBC Distribution Width 16.3 % (11.5-14.5); Red Blood Cell (RBC) Count 2.85 mill/uL (4.70-6.10); White Blood Cell (WBC) Count 3.4 10x3/uL (4.8-10.8)
[2022-04-06 05:08] LABS: ALT (SGPT) 24 U/L (8-55); AST (SGOT) 44 U/L (5-34); Albumin 2.5 g/dL (3.4-4.8); Alkaline Phosphatase 228 U/L (40-110); Anion Gap 18 mmol/L (10-20); BUN (Urea Nitrogen) 46 mg/dL (8.4-25.7); Bilirubin, Total 2.5 mg/dL (0.2-1.2); Calc. Creatinine Clearance 14 mL/min (70-130); Calcium 7.7 mg/dL (7.8-10.44); Carbon Dioxide 20 mmol/L (23-31); Chloride 105 mmol/L (98-107); Estimated GFR 11; Globulin 2.3 g/dL (2.4-3.5); Glucose 63 mg/dL (83-110); Potassium 4.4 mmol/L (3.5-5.1); Protein, Total 4.8 g/dL (5.8-8.1); Sodium 139 mmol/L (136-145)
[2022-04-06] MEDS ORDERED: Non-Formulary Item 1 EACH (Midodrine Hcl [Proamatine] 2.5 MG Tab) PO PRN (08:37)
[2022-04-06] MEDS ORDERED: Albuterol 200 PUFF (6.7GM INHALER) INH PRN (08:37)
[2022-04-06] MEDS ORDERED: Dextrose 50% Abboject 50 ML SYRINGE SLOW IVP PRN (08:39)
[2022-04-06] MEDS ORDERED: Dextrose 5% in Water 1,000 ML IV PRN (08:39)
[2022-04-06] MEDS ORDERED: Midodrine HCl 5 MG TAB PO PRN (08:52)
[2022-04-06] MEDS ORDERED: [UNRECOGNIZED DRUG - OTHER] PO SCH (09:00)
[2022-04-06] MEDS ORDERED: FOLIC ACID PO SCH (09:00)
[2022-04-06] MEDS ORDERED: Non-Formulary Item 1 EACH (Lactulose [Lactulose] 10 GM Packet) PO SCH (09:00)
[2022-04-06] MEDS ORDERED: VIT B COMPLEX AND C PO SCH (09:00)
[2022-04-06] MEDS: Tamsulosin HCl 0.4 MG CAP PO SCH (09:52)
[2022-04-06] MEDS: Atorvastatin Calcium 20 MG TAB PO SCH (09:52)
[2022-04-06] MEDS: Montelukast Sodium 10 mg Tablet PO SCH (09:52)
[2022-04-06] MEDS: Stress 600 With Zinc 1 TAB PO SCH (09:52)
[2022-04-06] MEDS: cefTRIAXone\\ROCEPHIN 1 GM in Sodium Chloride 0.9% 100 ML IVPB SCH (14:35)
[2022-04-06] MEDS ORDERED: Non-Formulary Item 1 EACH (Magnesium Oxide [Mag-Oxide] 200 MG Tablet) PO SCH (21:00)
[2022-04-06] MEDS ORDERED: Aspirin Chewable 81 MG TAB PO SCH (21:00)
[2022-04-06] MEDS: Ferrous Sulfate 325 MG TAB PO SCH (22:25)
[2022-04-06] MEDS: Aspirin Chewable 81 MG TAB PO SCH (22:25)
[2022-04-06] MEDS: Rifaximin 550 MG TAB PO SCH (22:26)
[2022-04-06] MEDS: Magnesium Oxide 400 MG TAB PO SCH (22:26)
[2022-04-07 05:04] LABS: Hemoglobin 8.5 g/dL (14.0-18.0); Mean Corpuscular HGB CONC 33.3 g/dL (32.0-36.0); Mean Corpuscular Hemoglobin 33.4 pg (27.0-31.0); Mean Platelet Volume 12.7 fL (7.4-10.4); Platelet Count 41 10x3/uL (130-400); RBC Distribution Width 15.9 % (11.5-14.5); Red Blood Cell (RBC) Count 2.53 mill/uL (4.70-6.10)
[2022-04-07 05:29] LABS: ALT (SGPT) 26 U/L (8-55); AST (SGOT) 42 U/L (5-34); Albumin 2.4 g/dL (3.4-4.8); Alkaline Phosphatase 216 U/L (40-110); Anion Gap 13 mmol/L (10-20); BUN (Urea Nitrogen) 66 mg/dL (8.4-25.7); Bilirubin, Total 1.3 mg/dL (0.2-1.2); Calc. Creatinine Clearance 12 mL/min (70-130); Calcium 7.2 mg/dL (7.8-10.44); Carbon Dioxide 20 mmol/L (23-31); Chloride 106 mmol/L (98-107); Estimated GFR 10; Globulin 2.3 g/dL (2.4-3.5); Glucose 96 mg/dL (83-110); Potassium 4.3 mmol/L (3.5-5.1); Protein, Total 4.7 g/dL (5.8-8.1); Sodium 135 mmol/L (136-145)
[2022-04-07] MEDS ORDERED: Heparin 10,000 UNITS/ 10 ML VIAL ONE (08:30)
[2022-04-07 12:36] LABS: HBSAg Index 0.29 S/CO (0-0.99); Hep B Surf Ag Non-Reactive S/CO (NonReactive)
[2022-04-07] MEDS: Tamsulosin HCl 0.4 MG CAP PO SCH (12:46)
[2022-04-07] MEDS: Rifaximin 550 MG TAB PO SCH ×2 (12:46→21:35)
[2022-04-07] MEDS: Atorvastatin Calcium 20 MG TAB PO SCH (12:46)
[2022-04-07] MEDS: Montelukast Sodium 10 mg Tablet PO SCH (12:47)
[2022-04-07] MEDS: Stress 600 With Zinc 1 TAB PO SCH (12:48)
[2022-04-07 12:56] LABS: Troponin I 0.119 ng/mL (< 0.028)
[2022-04-07 14:37] LABS: Magnesium 1.6 mg/dL (1.6-2.6)
[2022-04-07] MEDS: cefTRIAXone\\ROCEPHIN 1 GM in Sodium Chloride 0.9% 100 ML IVPB SCH (14:59)
[2022-04-07] MEDS ORDERED: Metoprolol Tartrate 25 MG TAB PO SCH (21:00)
[2022-04-07] MEDS: Ferrous Sulfate 325 MG TAB PO SCH (21:34)
[2022-04-07] MEDS: Aspirin Chewable 81 MG TAB PO SCH (21:34)
[2022-04-07] MEDS: Magnesium Oxide 400 MG TAB PO SCH (21:35)
[2022-04-08] MEDS: Montelukast Sodium 10 mg Tablet PO SCH (10:15)
[2022-04-08] MEDS: Tamsulosin HCl 0.4 MG CAP PO SCH (10:15)
[2022-04-08] MEDS: Stress 600 With Zinc 1 TAB PO SCH (10:15)
[2022-04-08] MEDS: Rifaximin 550 MG TAB PO SCH (10:15)
[2022-04-08] MEDS: Atorvastatin Calcium 20 MG TAB PO SCH (10:15)
[2022-04-08] MEDS: Metoprolol Tartrate 25 MG TAB PO SCH ×2 (10:16→12:03)
[2022-04-08] MEDS: cefTRIAXone\\ROCEPHIN 1 GM in Sodium Chloride 0.9% 100 ML IVPB SCH (15:36)
[2022-04-08 15:41] VITALS: BP 108/57; TEMP 98.4
== END 2022-04-08 17:56 | disposition home or self-care (01) | DRG 432 ==
LOC: ERS 11:32 → ERHOLD 13:49 → 2NO 23:50
PROVIDERS: ADMIT Internal Medicine; ATTEND Internal Medicine
PROC: 5A1D70Z Performance of Urinary Filtration, Intermittent, Less than 6 Hours Per Day (ICD-10-PCS; principal; 2022-04-05)
DX: K70.31 Alcoholic cirrhosis of liver with ascites (principal); G93.41 Metabolic encephalopathy; K76.7 Hepatorenal syndrome; N18.6 End stage renal disease; I85.10 Secondary esophageal varices without bleeding; I12.0 Hypertensive chronic kidney disease with stage 5 chronic kidney disease or end stage renal disease; I47.1 Supraventricular tachycardia; K76.82 Hepatic encephalopathy; I08.1 Rheumatic disorders of both mitral and tricuspid valves; D69.59 Other secondary thrombocytopenia; N40.0 Benign prostatic hyperplasia without lower urinary tract symptoms; J45.909 Unspecified asthma, uncomplicated; J44.9 Chronic obstructive pulmonary disease, unspecified; Z96.653 Presence of artificial knee joint, bilateral; Z96.643 Presence of artificial hip joint, bilateral; D63.1 Anemia in chronic kidney disease; E78.00 Pure hypercholesterolemia, unspecified; R77.8 Other specified abnormalities of plasma proteins; I95.89 Other hypotension; Z99.2 Dependence on renal dialysis; Z88.8 Allergy status to other drugs, medicaments and biological substances; Z79.899 Other long term (current) drug therapy; Z79.82 Long term (current) use of aspirin; Z85.819 Personal history of malignant neoplasm of unspecified site of lip, oral cavity, and pharynx; Z90.49 Acquired absence of other specified parts of digestive tract; Z90.89 Acquired absence of other organs; Z79.01 Long term (current) use of anticoagulants; Z87.891 Personal history of nicotine dependence
CPT/HCPCS: 36415; 51701; 70450; 71045; 80053; 80306; 80307; 81003; 81015; 82140; 82550; 82553; 83605; 83690; 83735; 83880; 84484; 85025; 85027; 87040; 87340; 90935; 93005; 93010; 93306; 96374; G0257; J0696; J1644; J2060; J3490; J7050; J7620

== ENCOUNTER 2022-04-28 11:56 | Inpatient (IN) | payer MEDICARE ==
[2022-04-28] MEDS ORDERED: Cefepime 2 GM VIAL ONE (12:41)
[2022-04-28 13:43] LABS: RBC Count-Automated (BF) 835 /cu.mm; WBC/Nucleated-Auto (BF) 93 /cu.mm
[2022-04-28 14:06] LABS: BF Color Yellow; Body Fluid Source Ascites Body Fluid; Clarity Clear (Clear); Tube # EDTA
[2022-04-28 14:08] LABS: BF Segmented Neutrophils 4 %; Cell Count Non Hematic 33 %; Lymphocytes 63 %
[2022-04-28 14:12] LABS: #Lymphocytes 0.3 thou/uL (1.20-3.40); #Monocytes 0.5 thou/uL (0.11-0.59); #Neutrophils 3.1 thou/uL (1.40-6.50); %Lymphocytes 8.4 % (21.0-51.0); %Monocytes 13.2 % (0.0-10.0); %Neutrophils 77.4 % (42.0-75.0); Hemoglobin 9.4 g/dL (14.0-18.0); Mean Corpuscular HGB CONC 33.1 g/dL (32.0-36.0); Mean Corpuscular Hemoglobin 33.4 pg (27.0-31.0); Mean Platelet Volume 12.2 fL (7.4-10.4); Platelet Count 41 10x3/uL (130-400); RBC Distribution Width 15.4 % (11.5-14.5); Red Blood Cell (RBC) Count 2.83 mill/uL (4.70-6.10)
[2022-04-28 14:41] LABS: ALT (SGPT) 25 U/L (8-55); AST (SGOT) 48 U/L (5-34); Albumin 2.6 g/dL (3.4-4.8); Alkaline Phosphatase 195 U/L (40-110); Anion Gap 18 mmol/L (10-20); BUN (Urea Nitrogen) 42 mg/dL (8.4-25.7); Bilirubin, Total 1.8 mg/dL (0.2-1.2); CK (CPK) 55 U/L (30-200); Calc. Creatinine Clearance 0 mL/min (70-130); Calcium 8.2 mg/dL (7.8-10.44); Carbon Dioxide 23 mmol/L (23-31); Chloride 100 mmol/L (98-107); Estimated GFR 8; Globulin 2.1 g/dL (2.4-3.5); Glucose 106 mg/dL (83-110); Lipase 42 U/L (8-78); Protein, Total 4.7 g/dL (5.8-8.1); Sodium 136 mmol/L (136-145)
[2022-04-28 14:54] LABS: CKMB 1.4 ng/mL (0-6.6)
[2022-04-28] MEDS ORDERED: Iopamidol-370 76% 500 ML 1 ML ONE (15:38)
[2022-04-28] MEDS ORDERED: Lactulose 10 GM/15 ML Oral Solution PR SCH (15:45)
[2022-04-28] MEDS ORDERED: Dextrose 5 %-0.45 % NaCl 1,000 ML IV SCH (17:45)
[2022-04-28 17:48] LABS: Lactic Acid 2.7 mmol/L (0.5-2.2)
[2022-04-28] MEDS ORDERED: Calcium Carbonate 500 MG ChewTAB PO PRN (17:51)
[2022-04-28] MEDS ORDERED: Midodrine HCl 5 MG TAB PO PRN (17:55)
[2022-04-28] MEDS ORDERED: Multivitamins, Adult 10 ML, Folic Acid 1 MG, Thiamine HCl 100 MG in Dextrose 5 %-0.45 %... IV SCH (18:00)
[2022-04-28] MEDS ORDERED: Folic Acid 1 MG TAB PO SCH (21:00)
[2022-04-28] MEDS ORDERED: Metoprolol Tartrate 25 MG TAB PO SCH (21:00)
[2022-04-28] MEDS: Pantoprazole 40 MG VIAL IVP SCH (22:30)
[2022-04-28] MEDS: Folic Acid/Vit B Comp W-C PO SCH (22:30)
[2022-04-28] MEDS: Rifaximin 550 MG TAB PO SCH (22:30)
[2022-04-29 04:18] LABS: Lactic Acid 2.2 mmol/L (0.5-2.2)
[2022-04-29 04:37] LABS: ALT (SGPT) 27 U/L (8-55); AST (SGOT) 52 U/L (5-34); Albumin 2.8 g/dL (3.4-4.8); Alkaline Phosphatase 193 U/L (40-110); Anion Gap 19 mmol/L (10-20); BUN (Urea Nitrogen) 48 mg/dL (8.4-25.7); Bilirubin, Total 2.1 mg/dL (0.2-1.2); Calc. Creatinine Clearance 10 mL/min (70-130); Calcium 8.6 mg/dL (7.8-10.44); Carbon Dioxide 21 mmol/L (23-31); Chloride 105 mmol/L (98-107); Estimated GFR 8; Globulin 2.3 g/dL (2.4-3.5); Glucose 104 mg/dL (83-110); Potassium 5.2 mmol/L (3.5-5.1); Protein, Total 5.1 g/dL (5.8-8.1); Sodium 140 mmol/L (136-145)
[2022-04-29 04:45] LABS: CKMB 2.1 ng/mL (0-6.6)
[2022-04-29 04:46] LABS: #Eosinphils 0.1 thou/uL (0.0-0.7); #Lymphocytes 0.4 thou/uL (1.20-3.40); #Monocytes 0.6 thou/uL (0.11-0.59); #Neutrophils 3.8 thou/uL (1.40-6.50); %Basophils 0.3 % (0.0-1.0); %Eosinophils 1.6 % (0.0-10.0); %Lymphocytes 8.2 % (21.0-51.0); %Monocytes 12.5 % (0.0-10.0); %Neutrophils 77.5 % (42.0-75.0); Hemoglobin 9.8 g/dL (14.0-18.0); Mean Corpuscular HGB CONC 32.7 g/dL (32.0-36.0); Mean Corpuscular Hemoglobin 33.2 pg (27.0-31.0); Platelet Count 43 10x3/uL (130-400); Platelet Morphology Comment Appears Decreased; RBC Distribution Width 15.6 % (11.5-14.5); Red Blood Cell (RBC) Count 2.95 mill/uL (4.70-6.10); White Blood Cell (WBC) Count 4.9 10x3/uL (4.8-10.8)
[2022-04-29 05:07] LABS: SARS-CoV-2 NAA Rapid Test Not Detected (NotDetected)
[2022-04-29 08:26] LABS: HBSAg Index 0.26 S/CO (0-0.99); Hep B Core Total Ab Non-Reactive (NonReactive); Hep B Core Total Index 0.09 S/CO (0-0.79); Hep B Surf Ag Non-Reactive S/CO (NonReactive); Hep C IgG Ab Non-Reactive (NonReactive)
[2022-04-29 08:36] LABS: HBSAB Concentration 291.98 mIU/mL; Hep B Surf AB Reactive (NonReactive)
[2022-04-29] MEDS: Rifaximin 550 MG TAB PO SCH ×2 (09:41→23:50)
[2022-04-29] MEDS: Pantoprazole 40 MG VIAL IVP SCH ×2 (09:41→23:56)
[2022-04-29] MEDS ORDERED: Heparin 10,000 UNITS/ 10 ML VIAL ONE (12:39)
[2022-04-29] MEDS: Multivitamins, Adult 10 ML, Folic Acid 1 MG, Thiamine HCl 100 MG in Dextrose 5 %-0.45 %... IV SCH (15:13)
[2022-04-29] MEDS ORDERED: Ipratropium/Albuterol 3 ML NEB NEB PRN (15:35)
[2022-04-29] MEDS: Ipratropium/Albuterol 3 ML NEB NEB SCH (18:44)
[2022-04-29] MEDS: Thiamine 100 MG TAB PO SCH (23:50)
[2022-04-29] MEDS: Tamsulosin HCl 0.4 MG CAP PO SCH (23:50)
[2022-04-29] MEDS: Folic Acid/Vit B Comp W-C PO SCH (23:50)
[2022-04-30] MEDS: Heparin 1,000 UNITS/ML VIAL FS SCH (00:15)
[2022-04-30] MEDS: Ipratropium/Albuterol 3 ML NEB NEB SCH ×4 (00:27→20:11)
[2022-04-30 05:21] LABS: INR-International Normal Ratio 1.5; Prothrombin Time 18.4 sec (12.0-14.7)
[2022-04-30 07:53] LABS: Hemoglobin 10.4 g/dL (14.0-18.0); Mean Corpuscular HGB CONC 31.9 g/dL (32.0-36.0); Mean Corpuscular Hemoglobin 33.1 pg (27.0-31.0); Mean Platelet Volume 12.2 fL (7.4-10.4); Platelet Count 39 10x3/uL (130-400); RBC Distribution Width 16.1 % (11.5-14.5); Red Blood Cell (RBC) Count 3.16 mill/uL (4.70-6.10); White Blood Cell (WBC) Count 10.5 10x3/uL (4.8-10.8)
[2022-04-30 08:01] LABS: AST (SGOT) 69 U/L (5-34); Albumin 2.3 g/dL (3.4-4.8); Anion Gap 29 mmol/L (10-20); BUN (Urea Nitrogen) 42 mg/dL (8.4-25.7); Bilirubin, Total 2.6 mg/dL (0.2-1.2); Calc. Creatinine Clearance 9 mL/min (70-130); Calcium 8.3 mg/dL (7.8-10.44); Carbon Dioxide 11 mmol/L (23-31); Chloride 105 mmol/L (98-107); Estimated GFR 7; Globulin 2.5 g/dL (2.4-3.5); Glucose 97 mg/dL (83-110); Potassium 4.2 mmol/L (3.5-5.1); Protein, Total 4.8 g/dL (5.8-8.1); Sodium 141 mmol/L (136-145)
[2022-04-30 08:15] LABS: Alkaline Phosphatase 166 U/L (40-110)
[2022-04-30 08:18] LABS: ALT (SGPT) 27 U/L (8-55)
[2022-04-30] MEDS ORDERED: Sodium Bicarb 50 MEQ/50 ML Abboject 8.4% SYRINGE IVP SCH (08:45)
[2022-04-30] MEDS ORDERED: Sodium Bicarb 50 MEQ/50 ML VIAL IVP SCH (10:00)
[2022-04-30 11:05] LABS: Band 40 % (5-11); Burr Cells SLIGHT = 2-5 cells (100X) (0-1/hpf); Lymphocytes 2 % (21-51); MDiff Complete? YES; Metamyelocyte 1 % (0-0); Monocytes 5 % (0-10); Neutrophil 52 % (42-75); Ovalocytes SLIGHT = 2-5 cells (100X) (0-1/hpf); Platelet Morphology Comment Appears Decreased; Polychromasia SLIGHT = 2-3 cells (100X) (0-2/hpf); Reflex for Review?? YES
[2022-04-30] MEDS: Rifaximin 550 MG TAB PO SCH ×2 (13:51→22:01)
[2022-04-30] MEDS: Pantoprazole 40 MG VIAL IVP SCH ×2 (14:36→21:40)
[2022-04-30] MEDS ORDERED: Sodium Bicarbonate Tab 325 MG TAB PO SCH (15:15)
[2022-04-30] MEDS: Multivitamins, Adult 10 ML, Folic Acid 1 MG, Thiamine HCl 100 MG in Dextrose 5 %-0.45 %... IV SCH (16:47)
[2022-04-30 18:38] LABS: Hemoglobin 10.9 g/dL (14.0-18.0); Mean Corpuscular HGB CONC 31.7 g/dL (32.0-36.0); Mean Corpuscular Hemoglobin 32.6 pg (27.0-31.0); Mean Platelet Volume 13.6 fL (7.4-10.4); Platelet Count 40 10x3/uL (130-400); Red Blood Cell (RBC) Count 3.34 mill/uL (4.70-6.10); White Blood Cell (WBC) Count 11.9 10x3/uL (4.8-10.8)
[2022-04-30 18:39] LABS: Anion Gap 27 mmol/L (10-20); BUN (Urea Nitrogen) 44 mg/dL (8.4-25.7); Calc. Creatinine Clearance 9 mL/min (70-130); Calcium 8.5 mg/dL (7.8-10.44); Carbon Dioxide 15 mmol/L (23-31); Chloride 105 mmol/L (98-107); Estimated GFR 7; Glucose 107 mg/dL (83-110); Potassium 3.9 mmol/L (3.5-5.1); Sodium 143 mmol/L (136-145)
[2022-04-30] MEDS ORDERED: Sodium Bicarbonate 150 MEQ in Dextrose 5% in Water 1,000 ML IV SCH (18:45)
[2022-04-30 18:46] LABS: Troponin I 0.081 ng/mL (< 0.028)
[2022-04-30 18:54] LABS: Band 32 % (5-11); Burr Cells SLIGHT = 2-5 cells (100X) (0-1/hpf); Lymphocytes 3 % (21-51); MDiff Complete? YES; Macrocytosis SLIGHT = 6-15 cells (100X) (0-5/hpf); Monocytes 5 % (0-10); Myelocyte 4 % (0-0); Neutrophil 56 % (42-75); Ovalocytes SLIGHT = 2-5 cells (100X) (0-1/hpf); Platelet Morphology Comment Appears Decreased; Polychromasia SLIGHT = 2-3 cells (100X) (0-2/hpf)
[2022-04-30] MEDS ORDERED: Octreotide Acetate 100 MCG/ML VIAL SLOW IVP SCH (19:00)
[2022-04-30] MEDS ORDERED: Octreotide Acetate 1,250 MCG in Sodium Chloride 0.9% 250 ML 250 ML IVPB SCH (19:00)
[2022-04-30] MEDS ORDERED: Ketamine 50 MG/ML (10ML VIAL) ONE (19:13)
[2022-04-30] MEDS ORDERED: EPINEPHrine 1 MG/10 ML Abboject SYRINGE ONE (19:16)
[2022-04-30] MEDS ORDERED: Midazolam HCl 5 mg/5 ml Vial ONE (19:27)
[2022-04-30] MEDS ORDERED: Midazolam HCl 2 mg/2 ml Vial SLOW IVP PRN (20:26)
[2022-04-30] MEDS ORDERED: Propofol 1,000 MG/100 ML VIAL IV PRN (20:30)
[2022-04-30] MEDS ORDERED: NOREPINEPHRINE 8 MG/250 ML-D5W 250 ML IVPB SCH (20:30)
[2022-04-30] MEDS ORDERED: Morphine 4 MG/ML VIAL SLOW IVP PRN (20:30)
[2022-04-30] MEDS ORDERED: DISCONTINUE PREVIOUS NARCOTIC PAIN MEDICATIONS AND BENZODIAZEPINES FS SCH (20:30)
[2022-04-30] MEDS ORDERED: Fentanyl CADD 100 ML IV SCH (20:30)
[2022-04-30] MEDS ORDERED: Fentanyl BOLUS 250 ML IVPB PRN (20:30)
[2022-04-30] MEDS ORDERED: Propofol BOLUS 1,000 MG/100 ML VIAL IV PRN (20:30)
[2022-04-30] MEDS ORDERED: Fentanyl CADD 100 ML ONE ×2 (20:44→20:45)
[2022-04-30] MEDS ORDERED: VANCOMYCIN IVPB PRN (20:52)
[2022-04-30] MEDS ORDERED: Piperacillin/Tazobactam 3.375 GM in Sodium Chloride 0.9% 100 ML IVPB SCH (21:00)
[2022-04-30] MEDS ORDERED: Vancomycin Diaylsis Sliding Scale (Wt 71-99) FS SCH (21:00)
[2022-04-30] MEDS ORDERED: Vancomycin 1.5 GRAM/300 ML BAG 1.5 GM in Premix Bag 1 BAG IVPB SCH (21:00)
[2022-04-30] MEDS: Folic Acid/Vit B Comp W-C PO SCH (22:02)
[2022-04-30] MEDS: Thiamine 100 MG TAB PO SCH (22:02)
[2022-04-30 22:03] LABS: Hemoglobin 11.7 g/dL (14.0-18.0); Platelet Count 46 10x3/uL (130-400)
[2022-04-30] MEDS: Tamsulosin HCl 0.4 MG CAP PO SCH (22:03)
[2022-04-30] MEDS: Sodium Bicarbonate Tab 325 MG TAB PO SCH (22:04)
[2022-04-30] MEDS: Albumin 25% 25 GM/100 ML BOT IVPB SCH (22:21)
[2022-04-30 22:41] LABS: Base Excess (BEa) -9.8 mEq/L (-2.0 to +3.0); CO2 Tension 27.7 mmHg (35.0-45.0); Calcium, Ionized (arterial) 1.09 mmol/L (1.12-1.30); Hemoglobin (Hb) 12.1 g/dL (14.0-18.0); Potassium - ABG Lab 3.75 mmol/L (3.70-5.30); pH, Arterial 7.34 (7.35-7.45)
[2022-04-30 22:42] LABS: Actual Bicarbonate (HCO3a) 14.6 mEq/L (22-28); Puncture Site RBA
[2022-04-30 22:43] LABS: ALV-art Gradient 221.875 mmHg (0-20)
[2022-05-01] MEDS: Heparin 1,000 UNITS/ML VIAL FS SCH (00:15)
[2022-05-01] MEDS: Albumin 25% 25 GM/100 ML BOT IVPB SCH (00:59)
[2022-05-01] MEDS: Piperacillin/Tazobactam 3.375 GM in Sodium Chloride 0.9% 100 ML IVPB SCH ×2 (01:27→13:13)
[2022-05-01] MEDS: Ipratropium/Albuterol 3 ML NEB NEB SCH ×3 (01:41→13:13)
[2022-05-01 04:21] LABS: Anion Gap 25 mmol/L (10-20); BUN (Urea Nitrogen) 48 mg/dL (8.4-25.7); Calc. Creatinine Clearance 9 mL/min (70-130); Calcium 8.4 mg/dL (7.8-10.44); Carbon Dioxide 18 mmol/L (23-31); Chloride 104 mmol/L (98-107); Estimated GFR 7; Glucose 172 mg/dL (83-110); Potassium 3.9 mmol/L (3.5-5.1); Sodium 143 mmol/L (136-145)
[2022-05-01] MEDS: Rifaximin 550 MG TAB PO SCH (07:42)
[2022-05-01] MEDS: Pantoprazole 40 MG VIAL IVP SCH (07:43)
[2022-05-01 08:37] LABS: Actual Bicarbonate (HCO3a) 18.5 mEq/L (22-28); Base Excess (BEa) -5.5 mEq/L (-2.0 to +3.0); CO2 Tension 31.1 mmHg (35.0-45.0); Calcium, Ionized (arterial) 1.05 mmol/L (1.12-1.30); Carboxyhemoglobin (COHb) 0.3 gm% (0.0-3.0); Hemoglobin (Hb) 11.1 g/dL (14.0-18.0); O2 Tension (PaO2), arterial 98.1 mmHg (> 70.0); Potassium - ABG Lab 3.92 mmol/L (3.70-5.30); pH, Arterial 7.39 (7.35-7.45)
[2022-05-01 08:38] LABS: Puncture Site RBA
[2022-05-01 08:39] LABS: ALV-art Gradient 148.225 mmHg (0-20)
[2022-05-01] MEDS ORDERED: Sodium Bicarbonate 2.5 MEQ/5 ML VIAL ONE (08:40)
[2022-05-01] MEDS ORDERED: Lidocaine 1% PF 5 ML VIAL ONE (08:40)
[2022-05-01 09:06] LABS: Hemoglobin 10.3 g/dL (14.0-18.0); Mean Corpuscular HGB CONC 33.7 g/dL (32.0-36.0); Mean Platelet Volume 12.4 fL (7.4-10.4); Platelet Count 50 10x3/uL (130-400); RBC Distribution Width 17.4 % (11.5-14.5); Red Blood Cell (RBC) Count 3.04 mill/uL (4.70-6.10); White Blood Cell (WBC) Count 7.7 10x3/uL (4.8-10.8)
[2022-05-01 10:10] LABS: Band 60 % (5-11); Lymphocytes 8 % (21-51); MDiff Complete? YES; Metamyelocyte 4 % (0-0); Monocytes 4 % (0-10); Neutrophil 24 % (42-75); Platelet Morphology Comment Appears Decreased; Polychromasia SLIGHT = 2-3 cells (100X) (0-2/hpf); Reflex for Review?? NO; Toxic Granulation SLIGHT; Vacuoles MODERATE
[2022-05-01] MEDS: Sodium Bicarbonate Tab 325 MG TAB PO SCH (10:22)
[2022-05-01 10:31] VITALS: BMI 22.7
[2022-05-01 10:42] VITALS: BP 95/52
[2022-05-01] MEDS ORDERED: Epoetin (ESRD) 20,000 UNITS/ML IVP SCH (10:50)
[2022-05-01] MEDS ORDERED: EPOETIN ALFA-EPBX (ESRD) 10,000 UNIT/ML VIAL IVP SCH (12:00)
[2022-05-01 13:12] VITALS: TEMP 97.8
== END 2022-05-01 13:54 | disposition hospice, inpatient (51) | DRG 441 ==
LOC: ERS 11:56 → 2NO 17:03 → CCU 04-30 18:14
PROVIDERS: ADMIT Internal Medicine; ATTEND Internal Medicine
PROC: 5A1D70Z Performance of Urinary Filtration, Intermittent, Less than 6 Hours Per Day (ICD-10-PCS; principal; 2022-04-28)
PROC: 30233N1 Transfusion of Nonautologous Red Blood Cells into Peripheral Vein, Percutaneous Approach (ICD-10-PCS; 2022-04-30)
PROC: 0DJ08ZZ Inspection of Upper Intestinal Tract, Via Natural or Artificial Opening Endoscopic (ICD-10-PCS; 2022-04-30)
PROC: 5A1935Z Respiratory Ventilation, Less than 24 Consecutive Hours (ICD-10-PCS; 2022-04-30)
PROC: 3E033XZ Introduction of Vasopressor into Peripheral Vein, Percutaneous Approach (ICD-10-PCS; 2022-04-30)
PROC: 06HY33Z Insertion of Infusion Device into Lower Vein, Percutaneous Approach (ICD-10-PCS; 2022-04-30)
DX: K76.82 Hepatic encephalopathy (principal); G92.8 Other toxic encephalopathy; N18.6 End stage renal disease; R57.8 Other shock; I81 Portal vein thrombosis; J96.00 Acute respiratory failure, unspecified whether with hypoxia or hypercapnia; I21.A1 Myocardial infarction type 2; C78.7 Secondary malignant neoplasm of liver and intrahepatic bile duct; I47.20 Ventricular tachycardia, unspecified; K92.1 Melena; Z66 Do not resuscitate; N40.0 Benign prostatic hyperplasia without lower urinary tract symptoms; K70.30 Alcoholic cirrhosis of liver without ascites; J44.9 Chronic obstructive pulmonary disease, unspecified; Z20.822 Contact with and (suspected) exposure to COVID-19; D63.1 Anemia in chronic kidney disease; C06.9 Malignant neoplasm of mouth, unspecified; Z96.643 Presence of artificial hip joint, bilateral; Z96.653 Presence of artificial knee joint, bilateral; Z88.8 Allergy status to other drugs, medicaments and biological substances; Z79.899 Other long term (current) drug therapy; Z79.82 Long term (current) use of aspirin; Z79.51 Long term (current) use of inhaled steroids; Z99.2 Dependence on renal dialysis
CPT/HCPCS: 36415; 36416; 36430; 36600; 49083; 70450; 71045; 74018; 74177; 80048; 80053; 82140; 82550; 82553; 82805; 82945; 83605; 83690; 84157; 84484; 85025; 85060; 85610; 86704; 86850; 86900; 86901; 87040; 87070; 87205; 89051; 90935; 93005; 94002; 94003; 94640; 96374; C9113; G0257; J0171; J0692; J1644; J2250; J2354; J2543; J3010; J3370; J3411; J3490; J7042; J7050; J7070; J7620; P9016; P9047; Q9967; U0002

== ENCOUNTER 2022-05-01 14:47 | Inpatient (IN) | payer OTHER ==
[2022-05-01] MEDS ORDERED: Lorazepam 2 MG/ML VIAL SLOW IVP PRN (15:02)
[2022-05-01] MEDS ORDERED: Morphine 4 MG/ML VIAL SLOW IVP PRN (15:04)
[2022-05-01] MEDS ORDERED: Morphine 4 MG/ML VIAL SLOW IVP SCH ×2 (15:15→22:00)
[2022-05-01] MEDS ORDERED: Scopolamine 1.5 mg/72 hour Patch TOP PRN ×2 (15:15)
[2022-05-01] MEDS ORDERED: Ondansetron PF 4 MG/2 ML Vial IVP PRN (15:15)
[2022-05-01] MEDS ORDERED: diphenhydrAMINE 50 MG/ML VIAL IVP PRN (15:15)
[2022-05-01] MEDS ORDERED: Acetaminophen 650 MG Suppository PR PRN (15:15)
[2022-05-01] MEDS ORDERED: Lorazepam 2 MG/ML VIAL SLOW IVP SCH (15:15)
[2022-05-01] MEDS: Lorazepam 2 MG/ML VIAL SLOW IVP SCH ×2 (17:45→20:06)
== END 2022-05-01 20:33 | disposition expired | DRG 951 ==
LOC: CCU 14:47
PROVIDERS: ADMIT Family Medicine; ATTEND Family Medicine
DX: Z51.5 Encounter for palliative care (principal); N18.6 End stage renal disease; J44.9 Chronic obstructive pulmonary disease, unspecified; J45.909 Unspecified asthma, uncomplicated; N40.0 Benign prostatic hyperplasia without lower urinary tract symptoms; K74.60 Unspecified cirrhosis of liver; Z99.2 Dependence on renal dialysis; Z88.8 Allergy status to other drugs, medicaments and biological substances; Z79.899 Other long term (current) drug therapy; Z79.82 Long term (current) use of aspirin; Z96.643 Presence of artificial hip joint, bilateral; Z96.653 Presence of artificial knee joint, bilateral; Z90.49 Acquired absence of other specified parts of digestive tract; Z90.89 Acquired absence of other organs; Z87.891 Personal history of nicotine dependence
CPT/HCPCS: J2060; J2270